=== PATIENT | male | born 1970 | race Caucasian/White ===

== ENCOUNTER 2017-02-22 18:57 | Emergency (ER) | payer SELFPAY ==
[~2017-02-22] VITALS: Ht 175.3 cm; Wt 109.8 kg
[2017-02-22 19:01] VITALS: TEMP 36.6; Ht 175.3 cm; Wt 109.8 kg
[2017-02-22] MEDS ORDERED: SODIUM CHLORIDE 0.9% 1000ML 1,000 ML IV STA (20:07)
[2017-02-22 20:18] LABS: BASO % 0.3 %; BASO ABS # 0.03 K/uL (0-0.2); COMPLETE YES; EOS % 2.1 %; HEMATOCRIT 41.3 % (42-52); IG% 0.2 %; LYMPH % 22.8 %; LYMPH ABS # 2.45 K/uL (1.2-3.4); MEAN CELL VOLUME 85.3 fL (80-100); MEAN CORPUSCULAR HEMOGLOBIN 30.6 pg (25-34); MEAN CORPUSCULAR HGB CONC 35.8 g/dl (32-36); MEAN PLATELET VOLUME 9.4 fL (7.4-10.4); MONO % 11.5 %; NEUT % 63.1 %; PLATELET COUNT 228 K/uL (130-400); RED BLOOD COUNT 4.84 M/uL (4.7-6.1); WHITE BLOOD COUNT 10.74 K/uL (4.8-10.8)
[2017-02-22 20:29] LABS: URINE APPEARANCE CLEAR (CLEAR); URINE BILIRUBIN NEG (NEG); URINE COLOR YELLOW; URINE NITRITE NEG (NEG); URINE SPECIFIC GRAVITY 1.029 (1.000-1.030); UROBILINOGEN NEG (NEG); ZZUR CULT IF INDIC CLEAN CATCH NO
[2017-02-22 20:37] LABS: MANUAL MICROSCOPIC REQUIRED? NO; REVIEW REQ? NO
[2017-02-22 20:56] LABS: POTASSIUM 3.9 mmol/L (3.5-5.1); SODIUM 144 mmol/L (136-145)
[2017-02-22 21:01] LABS: AST/SGOT 25 U/L (15-37)
[2017-02-22 21:17] LABS: ALKALINE PHOSPHATASE 74 U/L (45-117); ALT/SGPT 44 U/L (12-78); BLOOD UREA NITROGEN 12 mg/dl (7-18); BUN/CREATININE RATIO 12.1 (10-20); CALCIUM 8.6 mg/dl (8.5-10.1); CARBON DIOXIDE 29 mmol/L (21-32); CHLORIDE 109 mmol/L (98-107); CREATININE 0.96 mg/dl (0.60-1.40); GLUCOSE 106 mg/dl (70-99)
[2017-02-22] MEDS ORDERED: PRAV20TA PO (21:19)
[2017-02-22] MEDS ORDERED: ZNTT/150 PO (21:19)
[2017-02-22] MEDS ORDERED: PROP20TA67 PO (21:19)
[2017-02-22] MEDS ORDERED: OMEG10007 PO (21:19)
[2017-02-22 21:56] VITALS: BP 129/84; PULSE 54; O2SAT 98
--- NOTE | 2017-02-22 22:30 | EMERGENCY ROOM VISIT NOTE ---
History Report prepared by Brisa: Ebenezer Crews Under the Supervision of: Dr. Tavares Avery D.O. First contact with patient: 19:05 Chief Complaint: RECTAL BLEEDING Stated Complaint: BLEEDING FROM RECTUM History of Present Illness The patient is a 46 year old male who presents to the Emergency Room with complaints of intermittent rectal bleeding beginning 4 hours ago. He states that he noticed "bright red" blood in the toilet the first time he noticed the bleeding. He notes that he was straining and had hard stools at the time. The patient states that he noticed bleeding with defecation a second time, but it was primarily on the toilet paper this second/third/fourth time. He notes that he may have had some dark stool yesterday as well. He is not on any blood thinners. Pt denies headache, change in vision, fevers, chest pain, shortness of breath, nausea, vomiting, diarrhea, or pain with urination. He notes that he has a history of hemorrhoids. He has a mild burning on his rectum but otherwise no other complaints. He does not feel dizzy or lightheaded. Source of History: patient Onset: 4 hours ago Position: other (rectum) Quality: other (bleeding "bright red" blood) Timing: intermittent Associated Symptoms: + melena, No SOB, No chest pain, No chills, No diarrhea , No fevers, No nausea, No urinary symptoms, No vomiting Review of Systems See HPI for pertinent positives & negatives. A total of 10 systems reviewed and were otherwise negative. Past Medical & Surgical Medical Problems: (1) No Known Active Medical Problems Surgical Problems: (1) Hx of cholecystectomy Family History No pertinent family history stated. Social History Smoking Status: Never Smoker Marital Status: Housing Status: lives with family Current/Historical Medications Scheduled Propranolol (Inderal), 20 MG PO BID Ranitidine (Zantac), 150 MG PO BID Miscellaneous Medications Fish Oil (Vernal-3), 1 CAP PO Pravastatin (Pravachol ), 20 MG PO Allergies Uncoded Allergies: NKDA (Allergy, Unknown, 09/26/04) Physical Exam Vital Signs Date Time Temp Pulse Resp B/P Pulse Ox O2 Delivery O2 Flow Rate FiO2 02/22/17 21:56 54 16 129/84 98 Room Air 02/22/17 21:00 59 18 138/87 97 Room Air 02/22/17 19:01 36.6 106 18 164/94 96 Room Air Physical Exam GENERAL: Sitting up in bed, alert, well appearing, well nourished, no distress, non-toxic EYE EXAM: normal conjunctiva OROPHARYNX: no exudate, no erythema, lips, buccal mucosa, and tongue normal and mucous membranes are moist NECK: supple, no nuchal rigidity, no adenopathy, non-tender LUNGS: Clear to auscultation. Normal chest wall mechanics HEART: no murmurs, S1 normal and S2 normal ABDOMEN: abdomen soft, non-tender, normo-active bowel sounds, no masses, no rebound or guarding. BACK: Back is symmetrical on inspection and there is no deformity, no midline tenderness, no CVA tenderness. RECTAL: Heme positive. External hemorrhoid, nontender without active bleeding. SKIN: no rashes and no bruising UPPER EXTREMITIES: upper extremities are grossly normal. LOWER EXTREMITIES: No pitting edema. NEURO EXAM: Normal sensorium, cranial nerves II-XII grossly intact, normal speech, no gross weakness of arms, no gross weakness of legs. Medical Decision & Procedures Laboratory Results 02/22/17 20:05 Red Blood Count 4.84, Mean Corpuscular Volume 85.3, Mean Corpuscular Hemoglobin 30.6, Mean Corpuscular Hemoglobin Concent 35.8, Mean Platelet Volume 9.4, Neutrophils (%) (Auto) 63.1, Lymphocytes (%) (Auto) 22.8, Monocytes (%) (Auto) 11.5, Eosinophils (%) (Auto) 2.1, Basophils (%) (Auto) 0.3, Neutrophils # (Auto ) 6.77, Lymphocytes # (Auto) 2.45, Monocytes # (Auto) 1.24, Eosinophils # (Auto ) 0.23, Basophils # (Auto) 0.03 02/22/17 20:05 Test 02/22/17 19:45 02/22/17 20:05 Urine Color YELLOW Urine Appearance CLEAR (CLEAR) Urine pH 6.0 (4.5-7.5) Urine Specific [place] 1.029 (1.000-1.030) Urine Protein NEG (NEG) Urine Glucose (UA) NEG (NEG) Urine Ketones NEG (NEG) Urine Occult Blood NEG (NEG) Urine Nitrite NEG (NEG) Urine Bilirubin NEG (NEG) Urine Urobilinogen NEG (NEG) Urine Leukocyte Esterase NEG (NEG) Urine WBC (Auto) 0 /hpf (0-5) Urine RBC (Auto) 0-4 /hpf (0-4) Urine Hyaline Casts (Auto) 1-5 /lpf (0-5) Urine Epithelial Cells (Auto) 5-10 /lpf (0-5) Urine Bacteria (Auto) NEG (NEG) White Blood Count 10.74 K/uL (4.8-10.8) Red Blood Count 4.84 M/uL (4.7-6.1) Hemoglobin 14.8 g/dL (14.0-18.0) Hematocrit 41.3 % (42-52) Mean Corpuscular Volume 85.3 fL (80-100) Mean Corpuscular Hemoglobin 30.6 pg (25-34) Mean Corpuscular Hemoglobin Concent 35.8 g/dl (32-36) Platelet Count 228 K/uL (130-400) Mean Platelet Volume 9.4 fL (7.4-10.4) Neutrophils (%) (Auto) 63.1 % Lymphocytes (%) (Auto) 22.8 % Monocytes (%) (Auto) 11.5 % Eosinophils (%) (Auto) 2.1 % Basophils (%) (Auto) 0.3 % Neutrophils # (Auto) 6.77 K/uL (1.4-6.5) Lymphocytes # (Auto) 2.45 K/uL (1.2-3.4) Monocytes # (Auto) 1.24 K/uL (0.11-0.59) Eosinophils # (Auto) 0.23 K/uL (0-0.5) Basophils # (Auto) 0.03 K/uL (0-0.2) RDW Standard Deviation 41.3 fL (36.4-46.3) RDW Coefficient of Variation 13.2 % (11.5-14.5) Immature Granulocyte % (Auto) 0.2 % Immature Granulocyte # (Auto) 0.02 K/uL (0.00-0.02) Anion Gap 6.0 mmol/L (3-11) Est Creatinine Clear Calc Drug Dose 114.9 ml/min Estimated GFR () 107.9 Estimated GFR (Non- 93.1 BUN/Creatinine Ratio 12.1 (10-20) Calcium Level 8.6 mg/dl (8.5-10.1) Total Bilirubin 0.5 mg/dl (0.2-1) Direct Bilirubin < 0.1 mg/dl (0-0.2) Aspartate Amino Transf (AST/SGOT) 25 U/L (15-37) Alanine Aminotransferase (ALT/SGPT) 44 U/L (12-78) Alkaline Phosphatase 74 U/L (45-117) Total Protein 7.0 gm/dl (6.4-8.2) Albumin 3.8 gm/dl (3.4-5.0) Lipase 153 U/L (73-393) Laboratory results per my review. Medications Administered Medications (Trade) Dose Ordered Sig/Elton Route Start Time Stop Time Status Last Admin Dose Admin Sodium Chloride (Nss 1000ml) 1,000 ml @ 999 mls/hr Q1H1M STAT IV 02/22/17 20:07 02/22/17 21:07 DC 02/22/17 20:07 999 MLS/HR ED Course ED COURSE: Vital signs were reviewed and showed tachycardia The patients medical record was reviewed The above diagnostic studies were performed and reviewed. ED treatments and interventions as stated above. 1911: The patient was evaluated in room B7. A complete history and physical examination was performed. 2006: Ordered Sodium Chloride 1000 ml @ 999 mls/hr IV. 2119: I reassessed the patient. He states that he has had four bowel movements since he arrived. He states that the first bowel movement had blood around the stool in the toilet, but the following three only had blood with wiping. 2144: Upon reevaluation, the patient is resting comfortably. I discussed my findings with the patient and he understands and agrees with the treatment plan. Based on the patients age, coexisting illnesses, exam and lab findings the decision to treat as an outpatient was made. The patient remained stable while under my care. The patient appeared well at the time of discharge. Medical Decision Differential diagnoses includes but is not limited to gastritis, peptic ulcer disease, GERD, gallbladder disease, pancreatitis, small bowel obstruction, acute coronary syndrome, pericarditis, ischemic bowel, irritable bowel disease, irritable bowel syndrome, appendicitis, diverticulitis, malignancy, hernia, urinary tract infection, torsion, perforation, trauma, infectious. Patient is a 46-year-old male who presents the ER for bright red blood per rectum. His initial bowel movement had bright red blood in the bowl. He did have hard bowel movement with this. Following this he has only had blood with wiping. Labs show no significant leukocytosis, BMP, LFTs, bilirubin or lipase. UA was unremarkable. Rectal shows external hemorrhoid and was heme positive without stool. I discussed this case with GI and they concur/agree that this is likely hemorrhoidal in nature. Patient was discharged to follow-up with GI tomorrow. I did give him stool softeners and stressed the importance of following up and returning for any worsening symptoms. Again his abdominal exam was completely benign and his vitals showed a bradycardia with normal systolic pressures and a stable hemoglobin. Discussed with Pt concerning signs and symptoms to watch out for. Pt was instructed to follow up with their PCP and discussed with the patient their option to return to the ED at anytime for persistent or worsening symptoms. The appropriate anticipatory guidance and out- patient management, including indications for return to the emergency department , were explained at length to the patient and understood. Consults Time Called: 2131 Consulting Physician: Dr. Paiz -GI Returned Call: 2136 I reviewed the patient's case with Dr. Paiz. He recommends that the patient follow up as an outpatient. Impression Primary Impression: GI bleed Scribe Attestation The scribe's documentation has been prepared under my direction and personally reviewed by me in its entirety. I confirm that the note above accurately reflects all work, treatment, procedures, and medical decision making performed by me. Departure Information Dispostion Home / Self-Care Referrals Sobeida Sharma PA-C (PCP) Forms HOME CARE DOCUMENTATION FORM, IMPORTANT VISIT INFORMATION, WORK / SCHOOL INSTRUCTIONS Patient Instructions GI Bleeding - [facility], [facility] Additional Instructions Please follow up with your primary care doctor with in the next 24 hours. Any worsening of your symptoms, please return to the ED immediately. Dizziness, lightheadedness, abdominal pain, persistent bleeding, passing out, chest pain, shortness of breath or any other concerning signs or symptoms from your standpoint. Please call gastroenterology tomorrow morning to set up appointment to be seen. Problem Qualifiers Primary Impression: GI bleed GI bleed type/associated pathology: unspecified gastrointestinal hemorrhage type Qualified Codes: K92.2 - Gastrointestinal hemorrhage, unspecified
== END 2017-02-22 22:00 | disposition home or self-care (01) ==
LOC: C.EDB 19:00
DX: K92.2 Gastrointestinal hemorrhage, unspecified (principal); Z79.899 Other long term (current) drug therapy; Z90.49 Acquired absence of other specified parts of digestive tract

== ENCOUNTER 2018-01-24 18:47 | Emergency (ER) | payer SELFPAY ==
[~2018-01-24] VITALS: Ht 175.3 cm; Wt 109.1 kg
[~2018-01-24 18:47] MED LIST: OMEG10007 PO; PRAV20TA PO; PROP20TA67 PO
[2018-01-24 18:52] VITALS: TEMP 36.6; Ht 175.3 cm; Wt 109.1 kg
[2018-01-24] MEDS ORDERED: ALUMINUM/MAGNESIUM SUSP 30 ML UDC PO STA (19:02)
[2018-01-24] MEDS ORDERED: SODIUM CHLORIDE 0.9% 1000ML 1,000 ML IV STA (19:02)
[2018-01-24] MEDS ORDERED: ONDANSETRON INJ 2 MG/ML 2 ML VIAL IV STA (19:02)
--- NOTE | 2018-01-24 19:07 | EMERGENCY ROOM VISIT NOTE ---
History Report prepared by Brisa: Henna Mi Under the Supervision of: Zunilda GouldO. First contact with patient: 18:57 Chief Complaint: CHEST PAIN Stated Complaint: CHEST PAINS History of Present Illness The patient is a 47 year old male who presents to the Emergency Room with complaints of persistent chest pain that began 3 days ago. He reports that after work 3 days ago, he began dry heaving for about 2 hours. After this episode, his chest and stomach began hurting. Since then, he has also been experiencing lightheadedness, shortness of breath, headaches, indigestion, loss of appetite, tingling/numbness of his left arm, centralized back pain, and trouble staying warm. He notes that his symptoms worsen when when he coughs. The patient denies any fevers, swelling in his legs, vomiting, or diarrhea. He reports that he took Tylenol and Aleve, which did not help relieve his symptoms. The patient denies having a stress test in the past and denies a history of a heart attack. Source of History: patient Onset: 3 days ago Position: chest Quality: other (chest pain) Timing: other (persistent) Modifying Factors (Worsening): other (coughing) Associated Symptoms: + headache, + SOB, + abdominal pain, + back pain ( centralized), No fevers, No vomiting, No diarrhea Note: Associated symptoms includes: lightheadedness, indigestion, loss of appetite, tingling/numbness of his left arm, and trouble staying warm. The patient denies: swelling in his legs. Review of Systems See HPI for pertinent positives & negatives. A total of 10 systems reviewed and were otherwise negative. Past Medical & Surgical Medical Problems: (1) No Known Active Medical Problems Surgical Problems: (1) Hx of cholecystectomy Family History Hypertension Social History Smoking Status: Never Smoker Smokeless Tobacco Use: Yes Alcohol Use: none Drug Use: none Marital Status: Housing Status: lives with family Occupation Status: employed Current/Historical Medications Scheduled Omeprazole (Prilosec), 40 MG PO DAILY Ondasetron Odt (Zofran Odt), 4 MG SL Q6H Pravastatin Sodium (Pravastatin Sodium), 10 MG PO DAILY Propranolol Hcl (Propranolol Hcl), 40 MG PO BID Ranitidine (Zantac), 150 MG PO BID Allergies Coded Allergies: No Known Allergies (Unverified , 01/24/18) Physical Exam Vital Signs Date Time Temp Pulse Resp B/P (MAP) Pulse Ox O2 Delivery O2 Flow Rate FiO2 01/24/18 22:31 56 18 131/68 97 01/24/18 21:12 54 127/73 96 01/24/18 20:41 64 01/24/18 18:52 36.6 60 18 158/65 96 Room Air Physical Exam GENERAL: Patient is awake, alert, and in no acute distress. Patient is resting comfortably and showing no signs of anxiety EYES: The conjunctivae are clear. The pupils are round and reactive. EARS, NOSE, MOUTH AND THROAT: The nose is without any evidence of any deformity. Mucous membranes are moist tongue is midline NECK: The neck is nontender and supple. RESPIRATORY: Normal respiratory effort is noted there is no evidence of wheezing rhonchi or rales CARDIOVASCULAR: Regular rate and rhythm noted there no murmurs rubs or gallops normal S1 normal S2 GASTROINTESTINAL: Abdomen is mildly distended, but soft. Epigastric tenderness to palpation, but no rebound or rigidity. MUSCULOSKELETAL/EXTREMITIES: There is no evidence of gross deformity full range of motion is noted in the hips and shoulders SKIN: There is no obvious evidence of any rash. There are no petechiae, pallor or cyanosis noted. NEUROLOGIC: Patient is awake alert and oriented x3 strength is symmetric patellar reflexes are 2+ bilaterally Medical Decision & Procedures ER Provider Diagnostic Interpretation: Radiology results as stated below per my review and radiologist interpretation: ABD/PELVIS NO IV OR ORAL CONT CT DOSE: 1254.23 mGy.cm HISTORY: Pain epigastric pain TECHNIQUE: Multiaxial CT images of the abdomen and pelvis were performed without contrast. A dose lowering technique was utilized adhering to the principles of ALARA. COMPARISON STUDY: None. FINDINGS: Lung bases are clear. The liver spleen and pancreas are grossly unremarkable and terms of overall morphology. Prior cholecystectomy. The adrenal glands are normal. Kidneys negative for calcification or hydronephrosis. The bowel pattern is nonobstructive. The appendix is normal. There are findings of mild chronic sigmoid diverticulosis. There is no evidence for acute diverticulitis. There is no free fluid within the abdomen or pelvic region. There are postoperative reconstructive changes to the posterior left acetabulum and left iliac wing. IMPRESSION: 1. Prior cholecystectomy and left pelvic reconstructive-type change. 2. Mild chronic sigmoid diverticulosis. 3. Study is otherwise negative. 4. Normal appendix. The above report was generated using voice recognition software. It may contain grammatical, syntax or spelling errors. Electronically signed by: Davon Easley M.D. 01/24/2018 7:57 PM Dictated Date/Time: 01/24/2018 7:53 PM CHEST ONE VIEW PORTABLE CLINICAL HISTORY: ABDOMINAL PAIN/GI pain COMPARISON STUDY: No previous studies for comparison. FINDINGS: The bones soft tissues and hemidiaphragms are normal. The cardiomediastinal silhouette is normal. The lungs are clear. The pulmonary vasculature is normal. IMPRESSION: Negative chest. The above report was generated using voice recognition software. It may contain grammatical, syntax or spelling errors. Electronically signed by: Davon Easley M.D. 01/24/2018 7:21 PM Dictated Date/Time: 01/24/2018 7:21 PM Laboratory Results 01/24/18 19:13 Red Blood Count 5.07, Mean Corpuscular Volume 84.4, Mean Corpuscular Hemoglobin 30.2, Mean Corpuscular Hemoglobin Concent 35.7, Mean Platelet Volume 9.3, Neutrophils (%) (Auto) 60.2, Lymphocytes (%) (Auto) 26.5, Monocytes (%) (Auto) 10.5, Eosinophils (%) (Auto) 2.1, Basophils (%) (Auto) 0.4, Neutrophils # (Auto ) 5.81, Lymphocytes # (Auto) 2.56, Monocytes # (Auto) 1.01, Eosinophils # (Auto ) 0.20, Basophils # (Auto) 0.04 01/24/18 19:13 Test 01/24/18 19:13 01/24/18 20:12 White Blood Count 9.65 K/uL (4.8-10.8) Red Blood Count 5.07 M/uL (4.7-6.1) Hemoglobin 15.3 g/dL (14.0-18.0) Hematocrit 42.8 % (42-52) Mean Corpuscular Volume 84.4 fL (80-100) Mean Corpuscular Hemoglobin 30.2 pg (25-34) Mean Corpuscular Hemoglobin Concent 35.7 g/dl (32-36) Platelet Count 215 K/uL (130-400) Mean Platelet Volume 9.3 fL (7.4-10.4) Neutrophils (%) (Auto) 60.2 % Lymphocytes (%) (Auto) 26.5 % Monocytes (%) (Auto) 10.5 % Eosinophils (%) (Auto) 2.1 % Basophils (%) (Auto) 0.4 % Neutrophils # (Auto) 5.81 K/uL (1.4-6.5) Lymphocytes # (Auto) 2.56 K/uL (1.2-3.4) Monocytes # (Auto) 1.01 K/uL (0.11-0.59) Eosinophils # (Auto) 0.20 K/uL (0-0.5) Basophils # (Auto) 0.04 K/uL (0-0.2) RDW Standard Deviation 40.1 fL (36.4-46.3) RDW Coefficient of Variation 13.3 % (11.5-14.5) Immature Granulocyte % (Auto) 0.3 % Immature Granulocyte # (Auto) 0.03 K/uL (0.00-0.02) Anion Gap 6.0 mmol/L (3-11) Est Creatinine Clear Calc Drug Dose 112.2 ml/min Estimated GFR () 105.8 Estimated GFR (Non- 91.3 BUN/Creatinine Ratio 11.8 (10-20) Calcium Level 8.3 mg/dl (8.5-10.1) Magnesium Level 2.1 mg/dl (1.8-2.4) Total Bilirubin 0.3 mg/dl (0.2-1) Direct Bilirubin < 0.1 mg/dl (0-0.2) Aspartate Amino Transf (AST/SGOT) 24 U/L (15-37) Alanine Aminotransferase (ALT/SGPT) 34 U/L (12-78) Alkaline Phosphatase 72 U/L (45-117) Troponin I < 0.015 ng/ml (0-0.045) Total Protein 6.9 gm/dl (6.4-8.2) Albumin 3.6 gm/dl (3.4-5.0) Lipase 198 U/L (73-393) Urine Color YELLOW Urine Appearance CLOUDY (CLEAR) Urine pH 6.0 (4.5-7.5) Urine Specific [place] 1.026 (1.000-1.030) Urine Protein NEG (NEG) Urine Glucose (UA) NEG (NEG) Urine Ketones TRACE (NEG) Urine Occult Blood NEG (NEG) Urine Nitrite NEG (NEG) Urine Bilirubin NEG (NEG) Urine Urobilinogen NEG (NEG) Urine Leukocyte Esterase NEG (NEG) Urine WBC (Auto) 1-5 /hpf (0-5) Urine RBC (Auto) 0-4 /hpf (0-4) Urine Hyaline Casts (Auto) 1-5 /lpf (0-5) Urine Epithelial Cells (Auto) 0-5 /lpf (0-5) Urine Bacteria (Auto) NEG (NEG) Laboratory results per my review. Medications Administered Medications (Trade) Dose Ordered Sig/Elton Route Start Time Stop Time Status Last Admin Dose Admin Ondansetron HCl (Zofran Inj) 4 mg NOW STAT IV 01/24/18 19:02 01/24/18 19:04 DC 01/24/18 19:17 4 MG Sodium Chloride 1,000 ml @ 999 mls/hr Q1H1M STAT IV 01/24/18 19:02 01/24/18 20:02 DC 01/24/18 19:19 999 MLS/HR Pantoprazole Sodium 40 mg/ Syringe 10 ml @ 5 mls/min NOW ONCE IV 01/24/18 19:15 01/24/18 19:16 DC 01/24/18 20:03 5 MLS/MIN Al Hydroxide/Mg Hydroxide (Maalox Susp) 30 ml NOW STAT PO 01/24/18 19:02 01/24/18 19:04 DC 01/24/18 19:17 30 ML ECG Per My Interpretation Indication: chest pain Rate (beats per minute): 53 Rhythm: sinus bradycardia Findings: no ectopy, other (no ST segments abnormalities) Comparison ECG Date: changes [facility] 08/04/2000 ED Course 185: The patient was evaluated in room B10. A complete history and physical examination were performed. 1901: Ordered Maalox Susp 30ml PO, Sodium Chloride 1000ml @ 999 mls/hr IV, and Zofran Inj 4mg IV. 1914: Ordered Pantoprazole Sodium 40mg/ Syringe 10ml @ 5mls/min IV. Medical Decision Prior records/ancillary studies reviewed. Triage Nursing notes reviewed. The patient's history was concerning for chest pain. Differential diagnosis: Etiologies such as cardiac ischemia, aortic dissection, pulmonary embolism, pneumonia, pneumothorax, musculoskeletal, infections, pericarditis, myocarditis , esophageal rupture, gastrointestinal, as well as others were entertained. The patient is a 47-year-old male who presented to the emergency department for an evaluation of chest pain and abdominal pain. The patient had episodes of dry heaves and then started noticing abdominal pain and chest pain. The pain was somewhat reproducible but not completely. For this reason he was concerned that there could be some other underlying problem and possibly a cardiac problem. The patient's abdominal exam was not consistent with an acute surgical abdomen. I discussed patient's laboratory and radiographic studies with him. I also discussed the limitations of the emergency department workup for chest pain with him. The patient has had ongoing symptoms for quite some time but yet has a negative troponin. I do feel that this does not represent a cardiac source for his chest pain at this time. For this reason he was encouraged to rest and avoid any strenuous activity. He was also encouraged to call his family doctor in the morning to schedule a follow-up appointment but return to the emergency department immediately if symptoms change worsen or the need arises. Medication Reconcilliation Current Medication List: was personally reviewed by me Blood Pressure Screening Patient's blood pressure: Normal blood pressure Blood pressure disposition: Did not require urgent referral Impression Primary Impression: Chest pain Additional Impression: Abdominal pain Scribe Attestation The scribe's documentation has been prepared under my direction and personally reviewed by me in its entirety. I confirm that the note above accurately reflects all work, treatment, procedures, and medical decision making performed by me. Departure Information Dispostion Home / Self-Care Prescriptions Omeprazole (PRILOSEC) 40 Mg Cap 40 MG PO DAILY, #30 CAP Prov: Damian Kiser, DO 01/24/18 Ondasetron Odt (ZOFRAN ODT) 4 Mg Tab 4 MG SL Q6H for Nausea, #15 TAB Prov: Damian Kiser, DO 01/24/18 Referrals No Doctor, Assigned (PCP) Forms Call Back Authorization, HOME CARE DOCUMENTATION FORM, IMPORTANT VISIT INFORMATION Patient Instructions My [facility] Additional Instructions Call your family doctor in the morning to schedule a follow-up appointment. Continue all other medications as prescribed. Drink plenty clear liquids. Rest and avoid any strenuous activity. Return to the emergency department immediately if symptoms change worsen or the need arises. Problem Qualifiers Primary Impression: Chest pain Chest pain type: unspecified Qualified Codes: R07.9 - Chest pain, unspecified Additional Impression: Abdominal pain Abdominal location: unspecified location Qualified Codes: R10.9 - Unspecified abdominal pain
[2018-01-24] MEDS ORDERED: PANTOprazole INJ 40 MG in SYRINGE 0 ML IV ONE (19:15)
[2018-01-24 19:21] LABS: BASO % 0.4 %; BASO ABS # 0.04 K/uL (0-0.2); EOS % 2.1 %; HEMATOCRIT 42.8 % (42-52); HEMOGLOBIN 15.3 g/dL (14.0-18.0); IG# 0.03 K/uL (0.00-0.02); LYMPH % 26.5 %; LYMPH ABS # 2.56 K/uL (1.2-3.4); MEAN CELL VOLUME 84.4 fL (80-100); MEAN CORPUSCULAR HEMOGLOBIN 30.2 pg (25-34); MEAN CORPUSCULAR HGB CONC 35.7 g/dl (32-36); MEAN PLATELET VOLUME 9.3 fL (7.4-10.4); MONO % 10.5 %; MONO ABS # 1.01 K/uL (0.11-0.59); NEUT % 60.2 %; NEUT ABS # 5.81 K/uL (1.4-6.5); PLATELET COUNT 215 K/uL (130-400); RED CELL DISTRIBUTION WIDTH CV 13.3 % (11.5-14.5); RED CELL DISTRIBUTION WIDTH SD 40.1 fL (36.4-46.3); WHITE BLOOD COUNT 9.65 K/uL (4.8-10.8)
--- NOTE | 2018-01-24 19:22 | DIAGNOSTIC IMAGING REPORT ---
CHEST ONE VIEW PORTABLE CLINICAL HISTORY: ABDOMINAL PAIN/GI pain COMPARISON STUDY: No previous studies for comparison. FINDINGS: The bones soft tissues and hemidiaphragms are normal. The cardiomediastinal silhouette is normal. The lungs are clear. The pulmonary vasculature is normal. IMPRESSION: Negative chest. The above report was generated using voice recognition software. It may contain grammatical, syntax or spelling errors. Electronically signed by: Davon Easley M.D. 01/24/2018 7:21 PM Dictated Date/Time: 01/24/2018 7:21 PM
[2018-01-24] MEDS ORDERED: PROP40TA5 PO (19:41)
[2018-01-24] MEDS ORDERED: PRAV10TA39 PO (19:41)
--- NOTE | 2018-01-24 19:58 | DIAGNOSTIC IMAGING REPORT ---
ABD/PELVIS NO IV OR ORAL CONT CT DOSE: 1254.23 mGy.cm HISTORY: Pain epigastric pain TECHNIQUE: Multiaxial CT images of the abdomen and pelvis were performed without contrast. A dose lowering technique was utilized adhering to the principles of ALARA. COMPARISON STUDY: None. FINDINGS: Lung bases are clear. The liver spleen and pancreas are grossly unremarkable and terms of overall morphology. Prior cholecystectomy. The adrenal glands are normal. Kidneys negative for calcification or hydronephrosis. The bowel pattern is nonobstructive. The appendix is normal. There are findings of mild chronic sigmoid diverticulosis. There is no evidence for acute diverticulitis. There is no free fluid within the abdomen or pelvic region. There are postoperative reconstructive changes to the posterior left acetabulum and left iliac wing. IMPRESSION: 1. Prior cholecystectomy and left pelvic reconstructive-type change. 2. Mild chronic sigmoid diverticulosis. 3. Study is otherwise negative. 4. Normal appendix. The above report was generated using voice recognition software. It may contain grammatical, syntax or spelling errors. Electronically signed by: Davon Easley M.D. 01/24/2018 7:57 PM Dictated Date/Time: 01/24/2018 7:53 PM
[2018-01-24 20:03] LABS: CREATININE 0.97 mg/dl (0.60-1.40)
[2018-01-24 20:50] LABS: ALBUMIN 3.6 gm/dl (3.4-5.0); ALKALINE PHOSPHATASE 72 U/L (45-117); ALT/SGPT 34 U/L (12-78); AST/SGOT 24 U/L (15-37); BLOOD UREA NITROGEN 12 mg/dl (7-18); CALCIUM 8.3 mg/dl (8.5-10.1); CARBON DIOXIDE 28 mmol/L (21-32); GLUCOSE 83 mg/dl (70-99); LIPASE 198 U/L (73-393); POTASSIUM 3.8 mmol/L (3.5-5.1); SODIUM 143 mmol/L (136-145); TOTAL PROTEIN 6.9 gm/dl (6.4-8.2)
[2018-01-24] MEDS ORDERED: RANI150T85 PO (21:19)
[2018-01-24] MEDS ORDERED: ONDANSETRON HOME PACK 4MG OD TAB PO ONE (22:15)
[2018-01-24] MEDS ORDERED: OMEP40CA41 PO (22:15)
[2018-01-24] MEDS ORDERED: ONDA4TAB10 SL (22:15)
[2018-01-24 22:31] VITALS: BP 131/68; PULSE 56; O2SAT 97
== END 2018-01-24 22:31 | disposition home or self-care (01) ==
LOC: C.EDB 18:48
DX: R07.9 Chest pain, unspecified (principal); R10.13 Epigastric pain; R11.0 Nausea; F17.290 Nicotine dependence, other tobacco product, uncomplicated

== ENCOUNTER 2018-01-27 11:41 | Observation (INO) | payer SELFPAY ==
[~2018-01-27] VITALS: Ht 175.3 cm; Wt 106.5 kg
[~2018-01-27 11:41] MED LIST changes: -OMEG10007 PO; +OMEP40CA41 PO; +ONDA4TAB10 SL; +PRAV10TA39 PO; -PRAV20TA PO; -PROP20TA67 PO; +PROP40TA5 PO; +RANI150T85 PO
[2018-01-27] MEDS ORDERED: ONDANSETRON INJ 2 MG/ML 2 ML VIAL IV STA (12:08)
[2018-01-27] MEDS ORDERED: ACETAMINOPHEN 500 MG TAB PO STA (12:08)
[2018-01-27] MEDS ORDERED: ALUMINUM/MAGNESIUM SUSP 30 ML UDC PO STA (12:08)
--- NOTE | 2018-01-27 12:23 | EMERGENCY ROOM VISIT NOTE ---
History Report prepared by Brisa: Papi Singleton Under the Supervision of: Dr. Willis Barroso M.D. First contact with patient: 12:01 Chief Complaint: CHEST PAIN Stated Complaint: CHEST PAIN Nursing Triage Summary: pt reports he was seen in ed on thursday for same symptoms. pt reports intermittent mid chest pain. pt reports he feels nauseated. pt reports last night "my left arm was numb." pt reports intermittent chest pain continues. History of Present Illness The patient is a 47 year old white male with a past medical history of HLD, hip surgery, and a hiatal hernia who presents to the ED with a cc of coming and going dull chest pain beginning last night. Positive left arm heaviness and numbness, nausea, and intermittent SOB. Negative recent strain, recent injury, vomiting, cough, fever, chills, history of lung clots, recent long car rides or surgery. The patient notes that the pain comes and goes very quickly, nothing makes it better or worse, and the pain is in the middle and does not move anywhere. The patient was seen on the with similar symptoms. He had a negative work up with a negative CT abdomen/pelvis and a chest x-ray Source of History: patient Onset: last night Position: chest Quality: dull Timing: other (coming and going) Modifying Factors (Worsening): other (nothing) Modifying Factors (Relieving): other (nothing) Associated Symptoms: + SOB, + nausea, No fevers, No chills, No cough, No vomiting Note: Associated symptoms: Left arm heaviness and numbness Review of Systems See HPI for pertinent positives and negatives. A total of ten systems were reviewed and were otherwise negative. Past Medical & Surgical Medical Problems: (1) HLD (hyperlipidemia) Surgical Problems: (1) Hx of cholecystectomy Family History Hypertension Social History Smoking Status: Never Smoker Alcohol Use: none Drug Use: none Marital Status: Housing Status: lives with family Occupation Status: employed Current/Historical Medications Scheduled Omeprazole (Prilosec), 40 MG PO DAILY Ondasetron Odt (Zofran Odt), 4 MG SL Q6H Pravastatin Sodium (Pravastatin Sodium), 10 MG PO DAILY Propranolol Hcl (Propranolol Hcl), 40 MG PO BID Allergies Coded Allergies: No Known Allergies (Unverified , 01/27/18) Physical Exam Vital Signs Date Time Temp Pulse Resp B/P (MAP) Pulse Ox O2 Delivery O2 Flow Rate FiO2 01/27/18 14:12 94 Room Air 01/27/18 13:51 54 18 122/64 94 Room Air 01/27/18 13:09 54 18 137/79 95 Room Air 01/27/18 12:30 54 01/27/18 12:02 55 18 137/79 95 Room Air 01/27/18 11:55 95 Room Air 01/27/18 11:43 36.4 58 20 154/89 95 Room Air Physical Exam GENERAL: Awake, alert, well-appearing, NAD HENT: Normocephalic, atraumatic. EYES: Normal conjunctiva. Sclera non-icteric. PERRL. No anisocoria. NECK: Supple. No nuchal rigidity. FROM. RESPIRATORY: CTAB, no rhonchi, wheezing, crackles CARDIAC: RRR, no MRG ABDOMEN: Soft, NTND, BS+ MSK: No reproducible chest wall TTP, no LE edema. No calf pain. Negative Curt' s sign NEURO: GCS 15, CN 2-12 intact, moves all 4s on command SKIN: No rash or jaundice noted. Medical Decision & Procedures ER Provider Diagnostic Interpretation: Radiology results as stated below per my review and radiologist interpretation: SINGLE VIEW CHEST CLINICAL HISTORY: Atypical chest pain. FINDINGS: An AP, portable, upright chest radiograph is compared to study dated 01/24/2018. The examination is degraded by portable technique, large body habitus, and patient rotation. The cardiomediastinal silhouette is unremarkable. The lungs and pleural spaces are clear. No pneumothorax is seen. The bony thorax is grossly intact. IMPRESSION: No active disease in the chest. Electronically signed by: Praneeth Dave M.D. 01/27/2018 12:42 PM Dictated Date/Time: 01/27/2018 12:42 PM Laboratory Results 01/27/18 12:00 Red Blood Count 5.20, Mean Corpuscular Volume 84.4, Mean Corpuscular Hemoglobin 30.0, Mean Corpuscular Hemoglobin Concent 35.5, Mean Platelet Volume 9.6, Neutrophils (%) (Auto) 75.4, Lymphocytes (%) (Auto) 17.6, Monocytes (%) (Auto) 5.7, Eosinophils (%) (Auto) 0.7, Basophils (%) (Auto) 0.2, Neutrophils # (Auto) 8.42, Lymphocytes # (Auto) 1.96, Monocytes # (Auto) 0.64, Eosinophils # (Auto) 0.08, Basophils # (Auto) 0.02 01/27/18 12:00 Test 01/27/18 12:00 01/27/18 14:25 White Blood Count 11.16 K/uL (4.8-10.8) Red Blood Count 5.20 M/uL (4.7-6.1) Hemoglobin 15.6 g/dL (14.0-18.0) Hematocrit 43.9 % (42-52) Mean Corpuscular Volume 84.4 fL (80-100) Mean Corpuscular Hemoglobin 30.0 pg (25-34) Mean Corpuscular Hemoglobin Concent 35.5 g/dl (32-36) Platelet Count 248 K/uL (130-400) Mean Platelet Volume 9.6 fL (7.4-10.4) Neutrophils (%) (Auto) 75.4 % Lymphocytes (%) (Auto) 17.6 % Monocytes (%) (Auto) 5.7 % Eosinophils (%) (Auto) 0.7 % Basophils (%) (Auto) 0.2 % Neutrophils # (Auto) 8.42 K/uL (1.4-6.5) Lymphocytes # (Auto) 1.96 K/uL (1.2-3.4) Monocytes # (Auto) 0.64 K/uL (0.11-0.59) Eosinophils # (Auto) 0.08 K/uL (0-0.5) Basophils # (Auto) 0.02 K/uL (0-0.2) RDW Standard Deviation 40.9 fL (36.4-46.3) RDW Coefficient of Variation 13.5 % (11.5-14.5) Immature Granulocyte % (Auto) 0.4 % Immature Granulocyte # (Auto) 0.04 K/uL (0.00-0.02) Prothrombin Time 10.1 SECONDS (9.0-12.0) Prothromb Time International Ratio 1.0 (0.9-1.1) Activated Partial Thromboplast Time 26.2 SECONDS (21.0-31.0) Partial Thromboplastin Ratio 1.0 D-Dimer 370 ug/L FEU (0-500) Anion Gap 7.0 mmol/L (3-11) Est Creatinine Clear Calc Drug Dose 93.1 ml/min Estimated GFR () 85.2 Estimated GFR (Non- 73.5 BUN/Creatinine Ratio 9.5 (10-20) Calcium Level 8.8 mg/dl (8.5-10.1) Total Bilirubin 0.6 mg/dl (0.2-1) Direct Bilirubin 0.1 mg/dl (0-0.2) Aspartate Amino Transf (AST/SGOT) 25 U/L (15-37) Alanine Aminotransferase (ALT/SGPT) 38 U/L (12-78) Alkaline Phosphatase 68 U/L (45-117) Troponin I < 0.015 ng/ml (0-0.045) Pro-B-Type Natriuretic Peptide 164 pg/ml (0-450) Total Protein 7.0 gm/dl (6.4-8.2) Albumin 3.6 gm/dl (3.4-5.0) Lipase 122 U/L (73-393) Laboratory results reviewed by me Medications Administered Medications (Trade) Dose Ordered Sig/Elton Route Start Time Stop Time Status Last Admin Dose Admin Ondansetron HCl (Zofran Inj) 4 mg NOW STAT IV 01/27/18 12:08 01/27/18 12:09 DC 01/27/18 12:18 4 MG Al Hydroxide/Mg Hydroxide (Maalox Susp) 30 ml NOW STAT PO 01/27/18 12:08 01/27/18 12:09 DC 01/27/18 12:18 30 ML Acetaminophen (Tylenol Tab) 1,000 mg NOW STAT PO 01/27/18 12:08 01/27/18 12:09 DC 01/27/18 12:19 1,000 MG Aspirin (Aspirin Chew) 324 mg NOW STAT PO 01/27/18 13:05 01/27/18 13:07 DC 01/27/18 13:12 324 MG ECG Per My Interpretation Indication: chest pain Rate (beats per minute): 56 Rhythm: sinus bradycardia Findings: T-wave inversion (Lateral), other (Normal intervals, normal axis) Comparison ECG Date: 01/24/18 Change: TWI are new ED Course 1201: The patient was evaluated in room A3. A complete history and physical exam was performed. 1306: I reevaluated the patient, and he was not having any active chest pain, and he was getting aspirin. I discussed the treatment plan with him, and he was agreeable. He will be evaluated by further management by the hospitalist.. 1332: Discussed the patient's case with Dr. Kike SONI Hospitalist. The patient will be evaluated for further treatment and disposition. Medical Decision The patient is a 47 year old white male with a past medical history of HLD, hip surgery, and a hiatal hernia who presents to the ED with a cc of coming and going dull chest pain beginning last night. Nursing notes reviewed. Ancillary studies and prior records reviewed. Differential diagnosis: Etiologies such as cardiac ischemia, aortic dissection, pulmonary embolism, pneumonia, pneumothorax, musculoskeletal, infections, pericarditis, myocarditis , esophageal rupture, gastrointestinal, as well as others were entertained. Patient was seen and evaluated the bedside. Patient has complained of some chest discomfort. Patient states it is intermittent in nature central nonradiating. Patient has had some nausea without any vomiting. Patient did note some left upper extremity arm discomfort and numbness. Patient did have blood work completed along with EKG, troponin, chest x-ray. Patient's chest x-ray is clear. Patient blood work is unremarkable with a negative troponin. Patient's EKG does show TW I in the lateral leads. Given the acute changes in his EKG chest in 3 days the patient was given nitro and aspirin. I discussed the case with the on-call hospitalist who agreed to further evaluate and treat the patient. Medication Reconcilliation Current Medication List: was personally reviewed by me Blood Pressure Screening Patient's blood pressure: Elevated blood pressure Monitored by the hospitalist Consults Time Called: 1318 Consulting Physician: Dr. Kike SONI Hospitalist Returned Call: [phone] Discussed the patient's case with Dr. Kike SONI Hospitalist. The patient will be evaluated for further treatment and disposition. Impression Primary Impression: Chest pain Additional Impression: Abnormal EKG Scribe Attestation The scribe's documentation has been prepared under my direction and personally reviewed by me in its entirety. I confirm that the note above accurately reflects all work, treatment, procedures, and medical decision making performed by me. Departure Information Dispostion Being Evaluated By Hospitalist Referrals Sobeida Sharma PA-C (PCP) Patient Instructions [facility] Problem Qualifiers Primary Impression: Chest pain Chest pain type: unspecified Qualified Codes: R07.9 - Chest pain, unspecified
[2018-01-27 12:31] LABS: BASO % 0.2 %; BASO ABS # 0.02 K/uL (0-0.2); EOS % 0.7 %; EOS ABS # 0.08 K/uL (0-0.5); HEMATOCRIT 43.9 % (42-52); HEMOGLOBIN 15.6 g/dL (14.0-18.0); IG# 0.04 K/uL (0.00-0.02); LYMPH % 17.6 %; LYMPH ABS # 1.96 K/uL (1.2-3.4); MEAN CELL VOLUME 84.4 fL (80-100); MEAN CORPUSCULAR HGB CONC 35.5 g/dl (32-36); MEAN PLATELET VOLUME 9.6 fL (7.4-10.4); MONO % 5.7 %; MONO ABS # 0.64 K/uL (0.11-0.59); NEUT % 75.4 %; NEUT ABS # 8.42 K/uL (1.4-6.5); PLATELET COUNT 248 K/uL (130-400); RED CELL DISTRIBUTION WIDTH CV 13.5 % (11.5-14.5); RED CELL DISTRIBUTION WIDTH SD 40.9 fL (36.4-46.3); WHITE BLOOD COUNT 11.16 K/uL (4.8-10.8)
[2018-01-27 12:36] LABS: PTT PATIENT 26.2 SECONDS (21.0-31.0)
--- NOTE | 2018-01-27 12:43 | DIAGNOSTIC IMAGING REPORT ---
SINGLE VIEW CHEST CLINICAL HISTORY: Atypical chest pain. FINDINGS: An AP, portable, upright chest radiograph is compared to study dated 01/24/2018. The examination is degraded by portable technique, large body habitus, and patient rotation. The cardiomediastinal silhouette is unremarkable. The lungs and pleural spaces are clear. No pneumothorax is seen. The bony thorax is grossly intact. IMPRESSION: No active disease in the chest. Electronically signed by: Praneeth Dave M.D. 01/27/2018 12:42 PM Dictated Date/Time: 01/27/2018 12:42 PM
[2018-01-27 12:51] LABS: ALBUMIN 3.6 gm/dl (3.4-5.0); ALT/SGPT 38 U/L (12-78); AST/SGOT 25 U/L (15-37); BLOOD UREA NITROGEN 11 mg/dl (7-18); CALCIUM 8.8 mg/dl (8.5-10.1); CARBON DIOXIDE 25 mmol/L (21-32); CREATININE 1.16 mg/dl (0.60-1.40); GLUCOSE 144 mg/dl (70-99); LIPASE 122 U/L (73-393); POTASSIUM 3.9 mmol/L (3.5-5.1); SODIUM 139 mmol/L (136-145)
[2018-01-27 12:56] LABS: ALKALINE PHOSPHATASE 68 U/L (45-117)
[2018-01-27] MEDS ORDERED: ASPIRIN 324 MG CHEW PO STA (13:05)
[2018-01-27] MEDS ORDERED: NITROGLYCERIN 0.4 MG SL PER TAB CHARGE SL PRN ×2 (13:15→14:30)
[2018-01-27 14:12] VITALS: O2SAT 94; Ht 175.3 cm; Wt 106.5 kg
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
[2018-01-27] MEDS ORDERED: ASPIRIN 81 MG CHEW PO STA (14:25)
[2018-01-27] MEDS ORDERED: MAGNESIUM HYDROXIDE SUSP 30 ML UDC PO PRN (14:30)
[2018-01-27] MEDS ORDERED: ONDANSETRON INJ 2 MG/ML 2 ML VIAL IV PRN (14:30)
[2018-01-27] MEDS ORDERED: ACETAMINOPHEN 325 MG TAB PO PRN (14:30)
[2018-01-27] MEDS ORDERED: ZOLPIDEM TARTRATE 5 MG TAB PO PRN ×2 (14:30)
[2018-01-27] MEDS ORDERED: MoRPHine SULFATE 2 MG/ML CARP IV PRN (14:30)
[2018-01-27] MEDS ORDERED: ALUMINUM/MAGNESIUM/SIMETH (MAALOX MAX) 30 ML UDC PO PRN (14:30)
[2018-01-27] MEDS ORDERED: POLYETHYLENE (MIRALAX) 17 GM PACK PO PRN (14:30)
[2018-01-27 14:56] VITALS: O2SAT 94
[2018-01-27 16:00] VITALS: BP 157/79; PULSE 49; TEMP 36.7; O2SAT 95
[2018-01-27] MEDS ORDERED: ENOXAPARIN 40 MG/0.4 ML SYR SC SCH (16:00)
[2018-01-27] MEDS ORDERED: IV FLUIDS COMPLETED PRN (16:30)
[2018-01-27] MEDS: SODIUM CHLORIDE 0.9% 1000ML 1,000 ML IV SCH (16:51)
--- NOTE | 2018-01-27 17:34 | Cardiology Consultation ---
Cardiology Consultation Date of Consultation: Jan 27, 2018. Requesting Physician: Kike Reason for Consultation: CHest pain Pt evaluation today including: conversation w/ patient, conversation w/ family , physical exam, chart review, lab review, review of studies, review of inpatient medication list History of Present Illness The patient is a 47-year-old gentleman without a known history of cardiac disease who has been experiencing episodes of mild chest discomfort and left arm pain. Patient states that for several days he has not felt well. Most of his symptoms involve a sense of nausea and dry heaves. During the past few days he has had a couple of episodes of some mild epigastric and precordial discomfort. He describes this as very mild in severity perhaps 1-2 in severity out of 10. It is sort of a dull sensation in the middle of the precordium. Is not associated with exertion or change in position. It tends to happen at rest. He states that the symptoms commonly last a few minutes and then resolved without any particular intervention. He has also had some symptoms of left arm discomfort. He states that last evening he had an extended episode of left arm discomfort. It was difficult for him to get comfortable in bed. Based on the nature that symptom E felt like an evaluation was necessary. He did not have an extended period of chest discomfort. He has not had associated dyspnea. He continues to have an element of anorexia and abdominal complaints such as nausea. He has had frequent bowel movements but no specific diarrhea. He cannot recall any recent fevers or chills. Prior to this illness the patient is an active individual. He is accustomed to routine labor and does not report symptoms of chest discomfort or limiting dyspnea. He has had a sense of dizziness lately but no overt syncope. He has a rare flutter which is fleeting in nature and not associated with other symptoms. Past Medical/Surgical History Hyperlipidemia Essential tremor Past surgical history Cholecystectomy Left femoral fracture and repair Family History Hypertension No premature coronary disease Social History Smoking Status: Never Smoker History of Alcohol Use: No Patient uses smokeless tobacco. Currently employed by [employer] Review of Systems Per HPI All Other Systems: Reviewed and Negative Allergies Coded Allergies: No Known Allergies (Unverified , 01/27/18) Medications Current Inpatient Medications Medications (Trade) Dose Ordered Sig/Elton Route Start Time Stop Time Status Last Admin Dose Admin Ondansetron HCl (Zofran Odt) 4 mg Q6H SL 01/27/18 16:00 02/26/18 15:59 Pravastatin Sodium (Pravachol Tab) 10 mg DAILY PO 01/28/18 09:00 02/27/18 08:59 Pantoprazole Sodium (Protonix Tab) 40 mg QAM PO 01/28/18 09:00 02/27/18 08:59 Enoxaparin Sodium (Lovenox Inj) 40 mg Q24H SC 01/27/18 16:00 02/26/18 15:59 01/27/18 16:51 40 MG Sodium Chloride 1,000 ml @ 80 mls/hr [id number] IV 01/27/18 14:25 02/26/18 14:24 01/27/18 16:51 80 MLS/HR Acetaminophen (Tylenol Tab) 650 mg Q4H PRN PO 01/27/18 14:30 02/26/18 14:29 Al Hydrox/Mg Hydrox/Simethicone (Maalox Max Susp) 15 ml Q4H PRN PO 01/27/18 14:30 02/26/18 14:29 Magnesium Hydroxide (Milk Of Magnesia Susp) 30 ml Q12H PRN PO 01/27/18 14:30 02/26/18 14:29 Zolpidem Tartrate (Ambien Tab) 5 mg HSZ PRN PO 01/27/18 14:30 02/26/18 14:29 Zolpidem Tartrate (Ambien Tab) 5 mg HSZ PRN PO 01/27/18 14:30 02/26/18 14:29 Ondansetron HCl (Zofran Inj) 4 mg Q6H PRN IV 01/27/18 14:30 02/26/18 14:29 Nitroglycerin (Nitrostat Tab) 0.4 mg UD PRN SL 01/27/18 14:30 02/26/18 14:29 Morphine Sulfate (MoRPHine SULFATE INJ) 2 mg Q30M PRN IV 01/27/18 14:30 02/10/18 14:29 Aspirin (Ecotrin Tab) 325 mg QAM PO 01/28/18 09:00 02/27/18 08:59 Polyethylene (Miralax Powder Packet) 17 gm DAILY PRN PO 01/27/18 14:30 02/26/18 14:29 Propranolol HCl (Inderal Tab) 20 mg BID PO 01/27/18 21:00 02/26/18 20:59 Miscellaneous (Iv Fluids Completed) 1 ea PRN PRN N/A 01/27/18 16:30 01/27/19 16:29 Physical Exam Vital Signs Past 12 Hours Date Time Temp Pulse Resp B/P (MAP) Pulse Ox O2 Delivery O2 Flow Rate FiO2 01/27/18 14:56 51 18 136/78 94 Room Air 01/27/18 14:12 94 Room Air 01/27/18 13:51 54 18 122/64 94 Room Air 01/27/18 13:09 54 18 137/79 95 Room Air 01/27/18 12:30 54 01/27/18 12:02 55 18 137/79 95 Room Air 01/27/18 11:55 95 Room Air 01/27/18 11:43 36.4 58 20 154/89 95 Room Air The patient is alert and oriented. Mood and affect appeared normal. He answered all questions appropriately. HEENT: Pupils are equal and reactive to light and accommodation. Extraocular movements are intact. The sclerae are anicteric. Neuro: Cranial nerves intact Neck: Patient's neck is supple. He has palpable carotid pulses bilaterally without bruits on auscultation. There is no evidence of jugular venous distention. The thyroid is not enlarged. Lungs: Clear to auscultation bilaterally. He has good air movement without use of accessory muscles. No rales wheezes or rhonchi. Cardiac: Heart demonstrates a regular rate and rhythm. Normal S1 and S2. No murmurs on examination. Pulses: The patient has palpable radial pulses bilaterally that are equal in intensity Extremities: There was no evidence of hypoperfusion. There is no cyanosis or clubbing. There is no edema. Skin: I did not appreciate any rashes on examination today. Data Laboratory Results: Last 24 Hours Test 01/27/18 12:00 01/27/18 14:25 White Blood Count 11.16 K/uL Red Blood Count 5.20 M/uL Hemoglobin 15.6 g/dL Hematocrit 43.9 % Mean Corpuscular Volume 84.4 fL Mean Corpuscular Hemoglobin 30.0 pg Mean Corpuscular Hemoglobin Concent 35.5 g/dl Platelet Count 248 K/uL Mean Platelet Volume 9.6 fL Neutrophils (%) (Auto) 75.4 % Lymphocytes (%) (Auto) 17.6 % Monocytes (%) (Auto) 5.7 % Eosinophils (%) (Auto) 0.7 % Basophils (%) (Auto) 0.2 % Neutrophils # (Auto) 8.42 K/uL Lymphocytes # (Auto) 1.96 K/uL Monocytes # (Auto) 0.64 K/uL Eosinophils # (Auto) 0.08 K/uL Basophils # (Auto) 0.02 K/uL RDW Standard Deviation 40.9 fL RDW Coefficient of Variation 13.5 % Immature Granulocyte % (Auto) 0.4 % Immature Granulocyte # (Auto) 0.04 K/uL Prothrombin Time 10.1 SECONDS Prothromb Time International Ratio 1.0 Activated Partial Thromboplast Time 26.2 SECONDS Partial Thromboplastin Ratio 1.0 D-Dimer 370 ug/L FEU Sodium Level 139 mmol/L Potassium Level 3.9 mmol/L Chloride Level 107 mmol/L Carbon Dioxide Level 25 mmol/L Anion Gap 7.0 mmol/L Blood Urea Nitrogen 11 mg/dl Creatinine 1.16 mg/dl Est Creatinine Clear Calc Drug Dose 93.1 ml/min Estimated GFR () 85.2 Estimated GFR (Non- 73.5 BUN/Creatinine Ratio 9.5 Random Glucose 144 mg/dl Calcium Level 8.8 mg/dl Total Bilirubin 0.6 mg/dl Direct Bilirubin 0.1 mg/dl Aspartate Amino Transf (AST/SGOT) 25 U/L Alanine Aminotransferase (ALT/SGPT) 38 U/L Alkaline Phosphatase 68 U/L Troponin I < 0.015 ng/ml Pro-B-Type Natriuretic Peptide 164 pg/ml Total Protein 7.0 gm/dl Albumin 3.6 gm/dl Lipase 122 U/L Imaging: Chest x-ray was normal EKG: Normal sinus rhythm. Some very nonspecific ST and T-wave changes in lateral precordial leads Telemetry reviewed: Sinus rhythm Assessment & Plan 1. Atypical chest pain: Patient had an extended episode of arm discomfort which did not resolve in any abnormal biomarkers. That symptom in and of itself is not appear to be related to cardiac ischemia. He has some more fleeting and mild symptoms of chest discomfort. These cannot definitively be excluded as cardiac although they are atypical. He otherwise has been a very active individual without symptoms of angina or coronary insufficiency. I think he could easily be evaluated with provocative testing such as treadmill test. I will order this for tomorrow. In the absence of any abnormality he should engage in continued cardiac risk factor modification
[2018-01-27 19:47] VITALS: BP 115/73; PULSE 50; TEMP 36.6; O2SAT 95
[2018-01-27] MEDS ORDERED: PROPRANOLOL HCL 10 MG TAB PO SCH (21:00)
[2018-01-27] MEDS: ONDANSETRON 4MG OD TAB SL SCH (22:00)
[2018-01-27 23:15] VITALS: BP 156/83; PULSE 83; TEMP 36.8; O2SAT 99
[2018-01-28] MEDS: ONDANSETRON 4MG OD TAB SL SCH ×2 (04:00→10:00)
[2018-01-28] MEDS: SODIUM CHLORIDE 0.9% 1000ML 1,000 ML IV SCH (04:25)
[2018-01-28 04:51] VITALS: BP 119/74; PULSE 51; TEMP 36.5; O2SAT 97
[2018-01-28 06:38] LABS: BASO % 0.4 %; BASO ABS # 0.03 K/uL (0-0.2); EOS % 1.5 %; EOS ABS # 0.11 K/uL (0-0.5); HEMATOCRIT 39.4 % (42-52); HEMOGLOBIN 14.1 g/dL (14.0-18.0); IG# 0.02 K/uL (0.00-0.02); LYMPH % 29.2 %; MEAN CELL VOLUME 85.1 fL (80-100); MEAN CORPUSCULAR HEMOGLOBIN 30.5 pg (25-34); MEAN CORPUSCULAR HGB CONC 35.8 g/dl (32-36); MEAN PLATELET VOLUME 9.1 fL (7.4-10.4); MONO % 9.5 %; MONO ABS # 0.68 K/uL (0.11-0.59); NEUT % 59.1 %; NEUT ABS # 4.25 K/uL (1.4-6.5); PLATELET COUNT 177 K/uL (130-400); RED CELL DISTRIBUTION WIDTH CV 13.6 % (11.5-14.5); RED CELL DISTRIBUTION WIDTH SD 41.5 fL (36.4-46.3); WHITE BLOOD COUNT 7.19 K/uL (4.8-10.8)
[2018-01-28 07:02] LABS: HEMOGLOBIN A1C 5.3 % (4.5-5.6)
[2018-01-28 07:13] LABS: CALCIUM 8.3 mg/dl (8.5-10.1); CREATININE 0.99 mg/dl (0.60-1.40); POTASSIUM 3.7 mmol/L (3.5-5.1)
[2018-01-28 07:18] LABS: TOTAL PROTEIN 5.9 gm/dl (6.4-8.2)
[2018-01-28 07:49] VITALS: BP 121/63; PULSE 59; TEMP 37; O2SAT 96
[2018-01-28] MEDS ORDERED: PANTOprazole SOD 40 MG TAB PO SCH (09:00)
[2018-01-28] MEDS ORDERED: PRAVASTATIN SOD 10 MG TAB PO SCH (09:00)
[2018-01-28] MEDS ORDERED: ASPIRIN 325 MG ECTAB PO SCH (09:00)
[2018-01-28] MEDS ORDERED: PERFLUTREN LIPID MICROSPHERE (DEFINITY) IV ONE (09:35)
[2018-01-28 11:24] VITALS: BP 143/83; PULSE 70; TEMP 37; O2SAT 95
--- NOTE | 2018-01-28 12:45 | EXERCISE STRESS ECHO ---
*NOTICE TO RECEIVING LIBERTARIAN AGENCY This information is strictly Confidential and protected under [place] law. [place] law prohibits you from making any further disclosure of this information unless further disclosure is expressly permitted by the written consent of the person to whom it pertains or is authorized by law. A general authorization for the release of medical or other information is not sufficient for this purpose. Hospital accepts no responsibility if the information is made available to any other person, INCLUDING THE PATIENT. Interpretation Summary * Name: RANDY ZIMMERMAN Study Date: 01/28/2018 08:01 AM BP: 124/86 mmHg * Patient Location: C.2T\S\S230\S\1 HR: 56 * : 1970 (M/d/yyyy) Gender: Male Height: 69 in * Age: 47 yrs Ethnicity: CA Weight: 236 lb * Ordering Physician: Freddy Cage * Referring Physician: Self, Referred * Performed By: Winsome Butler RDCS * * Reason For Study: Chest Pain * BSA: 2.2 m2 * -- Conclusions -- * There is borderline concentric left ventricular hypertrophy * . * Normal exercise echocardiogram without evidence of inducible ischemia Procedure Details * ECHOEX, CPT #68727 * ECHO DOPPLER, CPT #[id number] * ECHO COLOR FLOW, CPT #[id number] * A contrast injection of Definity was performed to improve assessment of LV function. * Contrast was injected into an intravenous site in the right arm. * One vial of Definity ultrasound contrast was diluted in normal saline to a total volume of 10 ml. A total of '2' ml of solution was administered during imaging. * Lot # [id number] of Definity utilized for procedure. * Expiration date . * The attending nurse who injected the contrast agent was Drea Navarro RN. Left Ventricular Findings with Stress * Normal exercise echocardiogram without evidence of inducible ischemia Left Ventricle * The left ventricle is normal in size. * There is borderline concentric left ventricular hypertrophy. * Ejection Fraction = 55-60%. * The left ventricular wall motion is normal at rest. Right Ventricle * The right ventricle is normal in size and function. * The right ventricular systolic function is normal as assessed by tricuspid annular plane systolic excursion (TAPSE) (normal >1.5 cm). Atria * The left atrial size is normal. * Right atrial size is normal. Mitral Valve * The mitral valve leaflets appear normal. There is no evidence of stenosis, fluttering, or prolapse. * Significant mitral regurgitation is absent. Tricuspid Valve * The tricuspid valve is not well visualized, but is grossly normal. * There is trace tricuspid regurgitation. Aortic Valve * The aortic valve is normal in structure and function. * The aortic valve is trileaflet. * No hemodynamically significant valvular aortic stenosis. * There is no significant aortic regurgitation. Pulmonic Valve * The pulmonic valve is not well visualized. Great Vessels * The aortic root is normal size. Pericardium * There is no pericardial effusion. Stress Parameters * Normal baseline electrocardiogram. * Stress ECG: No ST changes. No arrhythmias. * Rest heart rate was '56' BPM. * Rest blood pressure was '124/86' * Maximum heart rate achieved was 150 bpm. * Maximum heart rate was 87 % of maximum age-predicted heart rate. * Maximum blood pressure was '186/80' * Total exercise time was '09:36' * Maximum exercise MET level achieved was '11.00' METS * Maximum treadmill speed was '16.00' miles per hour. * Maximum treadmill elevation was '4.20'% grade. Left Ventricular Findings with Stress * Normal baseline EKG No significant ST or T-wave changes with exercise Baseline echocardiogram revealed normal wall motion with normal LV systolic function There is normal augmentation of all segments without development of ischemia at peak exertion There was a hypertensive response to exercise No arrhythmias Jean treadmill score: 9.5 (low risk) MMode 2D Measurements and Calculations IVSd 1.2 cm IVSs 1.2 cm LVIDd 3.4 cm LVIDs 2.2 cm LVPWd 1.0 cm LVPWs 1.5 cm IVS/LVPW 1.2 FS 35.4 % EDV(Teich) 47.2 ml ESV(Teich) 16.1 ml EF(Teich) 65.9 % EDV(cubed) 39.1 ml ESV(cubed) 10.6 ml EF(cubed) 73.0 % % IVS thick -0.60 % % LVPW thick 39.9 % LV mass(C)d 118.6 grams LV mass(C)dI 53.5 grams/m\S\2 LV mass(C)s 87.7 grams LV mass(C)sI 39.6 grams/m\S\2 SV(Teich) 31.1 ml SI(Teich) 14.0 ml/m\S\2 SV(cubed) 28.5 ml SI(cubed) 12.9 ml/m\S\2 Ao root diam 3.1 cm Ao root area 7.8 cm\S\2 ACS 1.8 cm LA dimension 3.4 cm LA/Ao 1.1 LVAd ap4 33.8 cm\S\2 LVLd ap4 8.3 cm EDV(MOD-sp4) 114.8 ml EDV(sp4-el) 116.9 ml LVAs ap4 19.5 cm\S\2 LVLs ap4 6.8 cm ESV(MOD-sp4) 46.6 ml ESV(sp4-el) 47.1 ml EF(MOD-sp4) 59.4 % EF(sp4-el) 59.7 % LVAd ap2 26.0 cm\S\2 LVLd ap2 8.0 cm EDV(MOD-sp2) 73.9 ml EDV(sp2-el) 71.2 ml LVAs ap2 16.1 cm\S\2 LVLs ap2 6.9 cm ESV(MOD-sp2) 33.3 ml ESV(sp2-el) 32.0 ml EF(MOD-sp2) 55.0 % EF(sp2-el) 55.0 % LVLd %diff -3.36 % EDV(MOD-bp) 92.3 ml LVLs %diff 0.15 % ESV(MOD-bp) 39.4 ml EF(MOD-bp) 57.3 % SV(MOD-sp4) 68.2 ml SI(MOD-sp4) 30.8 ml/m\S\2 SV(MOD-sp2) 40.7 ml SI(MOD-sp2) 18.4 ml/m\S\2 SV(MOD-bp) 52.9 ml SI(MOD-bp) 23.9 ml/m\S\2 SV(sp4-el) 69.8 ml SI(sp4-el) 31.5 ml/m\S\2 SV(sp2-el) 39.2 ml SI(sp2-el) 17.7 ml/m\S\2 Doppler Measurements and Calculations MV E max mariana 90.7 cm/sec MV A max mariana 79.2 cm/sec MV E/A 1.1 MV dec time 0.25 sec Ao V2 max 126.3 cm/sec Ao max PG 6.4 mmHg Ao max PG (full) 2.6 mmHg LV V1 max PG 3.8 mmHg LV V1 max 96.9 cm/sec PA V2 max 107.8 cm/sec PA max PG 4.7 mmHg PI max mariana 132.7 cm/sec PI max PG 7.0 mmHg PI dec slope 91.3 cm/sec\S\2 PI P1/2t 425.6 msec TR max mariana 235.0 cm/sec
--- NOTE | 2018-01-28 13:13 | Discharge Summary ---
Discharge Summary Date of Service Jan 28, 2018. Discharge Summary Admission Date: Jan 27, 2018 at 14:29 Discharge Date: February 27, 2018 Discharge Disposition: Home Principal Diagnosis: Atypical chest pain Medication Reconciliation New Medications: Amlodipine Besylate (Amlodipine Besylate) 5 Mg Tab 5 MG PO DAILY for 30 Days, #30 TAB Continued Medications: Omeprazole (Prilosec) 40 Mg Cap 40 MG PO DAILY, #30 CAP Ondasetron Odt (Zofran Odt) 4 Mg Tab 4 MG SL Q6H for Nausea, #15 TAB Pravastatin Sodium (Pravastatin Sodium) 10 Mg Tab 10 MG PO DAILY, TAB Discontinued Medications: Propranolol Hcl (Propranolol Hcl) 40 Mg Tab 40 MG PO BID, TAB DO NOT STOP THIS MEDICATION ABRUPTLY Discharge Exam Review of Systems Review of system Constitutional: No fever / no chills / no sweats / no weakness / no fatigue Eyes: no blurring of vision / no eye pain / no discharge / no redness ENT: no hearing loss / no epistaxis /no swallowing problems Respiratory: no cough / no wheezing / no SOB / no hemoptysis Cardiovascular: Substernal chest pain with left arm numbness/ no lower extremity edema / no palpitation Abdomen: no pain /dry heaves with nausea/ no vomiting / no constipation Musculoskeletal: no joint pain / no muscle pain / no joint swelling Genitourinary: no dysuria / no incontinence / no urinary retention Neurologic: no focal weakness / no numbness/tingling / no ataxia Psychiatric: no depression symptoms / no anxiety / no insomnia Endocrine: no excessive thirst / no excessive urination Hematologic: no abnormal bleeding / no bruising / no LN swelling Skin: No rash / no pallor Physical Exam General patient appears to be comfortable, not in acute distress HEENT: Atraumatic , normocephalic /no jaundice /no pallor /anicteric /no dry mucous membrane /normal external ear inspection Neck: Supple /no swelling /central trach Heart: S1/S2 normal/regular rate and rhythm/no gallop /no rub /no murmur Lungs: Clear to auscultation bilaterally/no use of accessory muscles of respiration Abdomen: Soft/has minimal tenderness in right upper quadrant/no guarding/no rebound/no organomegaly/no pulsatile mass Musculoskeletal: No swelling/no edema/no tenderness/normal range of motion Neuro exam: Awake alert oriented 3/cranial nerves II through XII appear to be intact/sensation intact/moves all extremities/no abnormal movements Psychiatric evaluation: No depressed mood/normal affect Skin: No rash on exposed skin area/no erythema Extremity: Normal pulse/no pitting edema/no clubbing or cyanosis Endocrine/lymphatic: No obvious lymphadenopathy /no lymphedema Hospital Course The patient is a 47-year-old gentleman without a known history of cardiac disease who has been experiencing episodes of mild chest discomfort and left arm pain. Patient states that for several days he has not felt well. Most of his symptoms involve a sense of nausea and dry heaves. During the past few days he has had a couple of episodes of some mild epigastric and precordial discomfort. He describes this as very mild in severity perhaps 1-2 in severity out of 10. It is sort of a dull sensation in the middle of the precordium. Is not associated with exertion or change in position. It tends to happen at rest. He states that the symptoms commonly last a few minutes and then resolved without any particular intervention. He has also had some symptoms of left arm discomfort. He states that last evening he had an extended episode of left arm discomfort. It was difficult for him to get comfortable in bed. Based on the nature that symptom E felt like an evaluation was necessary. He did not have an extended period of chest discomfort. He has not had associated dyspnea. He continues to have an element of anorexia and abdominal complaints such as nausea. He has had frequent bowel movements but no specific diarrhea. He cannot recall any recent fevers or chills. Prior to this illness the patient is an active individual. He is accustomed to routine labor and does not report symptoms of chest discomfort or limiting dyspnea. He has had a sense of dizziness lately but no overt syncope. He has a rare flutter which is fleeting in nature and not associated with other symptoms. Patient had negative markers and negative stress test. Patient was admitted under observation and discharge the following day. Perhaps symptoms may be due to esophageal spasm. Patient will taper off beta blockers and start calcium channel blockers Total Time Spent: Greater than 30 minutes This includes examination of the patient, discharge planning, medication reconciliation, and communication with other providers. Discharge Instructions Please refer to the electronic Patient Visit Report (Discharge Instructions) for additional information. Follow-Up As noted on discharge instructions.
[2018-01-28] MEDS ORDERED: LISI-461 PO (13:40)
--- NOTE | 2018-01-28 13:41 | Discharge Instructions ---
Discharge Instructions Date of Service Jan 28, 2018. Admission Reason for Admission: Chest Pain Discharge Discharge Diagnosis / Problem: Chest pain Discharge Goals Goal(s): Decrease discomfort, Improve function Activity Recommendations Activity Limitations: resume your previous activity . Instructions / Follow-Up Instructions / Follow-Up Followup with PCP in 1-2 weeks Take half a tablet of Propranolol twice a day for one week. Take half a tablet of propranolol once a day for one week. Start the new medicine Amlodipine in 1 week. Current Hospital Diet Patient's current hospital diet: Regular Diet Discharge Diet Recommended Diet: Regular Diet Pending Studies Studies pending at discharge: no Laboratory Results Hemoglobin A1c Test 01/28/18 06:18 Range/Units Estimated Average Glucose 105 mg/dl Hemoglobin A1c 5.3 4.5-5.6 % Lipid Panel Test 01/28/18 06:18 Range/Units Triglycerides Level 190 H 0-150 mg/dl Cholesterol Level 129 0-200 mg/dl HDL Cholesterol 28 mg/dl Cholesterol/HDL Ratio 4.6 LDL Cholesterol, Calculated 63 mg/dl Medical Emergencies . Who to Call and When: Medical Emergencies: If at any time you feel your situation is an emergency, please call 911 immediately. . Non-Emergent Contact Non-Emergency issues call your: Primary Care Provider Call Non-Emergent contact if: you have any medication questions . . "Provider Documentation" section prepared by Harpal Webster. .
[2018-01-28] MEDS ORDERED: NRV5 PO (14:01)
[2018-01-28 14:24] VITALS: BP 143/83; PULSE 70; TEMP 37; O2SAT 95
== END 2018-01-28 15:24 | disposition home or self-care (01) ==
LOC: C.EDB 11:43 → C.2T 14:29 → ENRESERV 14:43
PROVIDERS: ADMIT Internal Medicine; ATTEND Internal Medicine
DX: R07.89 Other chest pain (principal); R00.1 Bradycardia, unspecified; E78.5 Hyperlipidemia, unspecified; K44.9 Diaphragmatic hernia without obstruction or gangrene; G25.0 Essential tremor; E66.9 Obesity, unspecified; F17.220 Nicotine dependence, chewing tobacco, uncomplicated; Z79.899 Other long term (current) drug therapy; Z82.49 Family history of ischemic heart disease and other diseases of the circulatory system

== ENCOUNTER 2019-11-30 04:59 | Observation (INO) ==
--- OUTSIDE RECORDS SUMMARY | 2019-11-30 05:01 | External Medical Summary | Continuity of Care Document ---
:1970 Author Name Lizeth Upton Address Unavailable Unavailable , Care Team Providers Name Role Phone Fauzia Upton Unavailable [email or web address] Unavailable Unavailable Problems Active medical history not documented Allergies and Adverse Reactions Allergy history not documented Medications Medications not documented Procedures Procedures not documented Immunizations Immunizations not documented Plan of Treatment Planned Observations Planned Goals not documented Results No Known Results Results not documented
--- OUTSIDE RECORDS SUMMARY | 2019-11-30 05:02 | External Medical Summary | Continuity of Care Document ---
:1970 Author Name Lizeth Upton Address Unavailable Unavailable , Care Team Providers Name Role Phone Fauzia Upton Unavailable [email or web address], UNKNOWN Unavailable Unavailable Problems Active medical history not documented Allergies and Adverse Reactions Allergy history not documented Medications Medications not documented Procedures Procedures not documented Immunizations Immunizations not documented Plan of Treatment Planned Observations Planned Goals not documented Results No Known Results Results not documented
[2019-11-30 05:32] LABS: Basophils # (auto) 0.02 K/uL (0-0.2); Basophils % (auto) 0.3 %; Eosinophils % (auto) 1.4 %; Hematocrit (blood only) 45.8 % (42-52); Hemoglobin 16.7 g/dL (14.0-18.0); Immature Granulocytes # (auto) 0.02 K/uL (0.00-0.02); Immature Granulocytes % (auto) 0.3 %; Lymphocytes # (auto) 1.46 K/uL (1.2-3.4); Lymphocytes % (auto) 20.1 %; Mean Corpuscular Hemoglobin 30.8 pg (25-34); Mean Corpuscular Hgb Conc 36.5 g/dL (32-36); Mean Corpuscular Volume 84.3 fL (80-100); Monocytes # (auto) 0.76 K/uL (0.11-0.59); Monocytes % (auto) 10.4 %; Neutrophils # (auto) 4.92 K/uL (1.4-6.5); Neutrophils % (auto) 67.5 %; Platelet Count 241 K/uL (130-400); RDW Coefficient of Variation 13.2 % (11.5-14.5); RDW Standard Deviation 40.3 fL (36.4-46.3); Red Blood Count 5.43 M/uL (4.7-6.1); White Blood Count 7.28 K/uL (4.8-10.8)
[2019-11-30 05:48] LABS: Partial Thromboplastin Ratio 0.9; Partial Thromboplastin Time 25.6 Seconds (21.0-31.0); Prothrombin Time 9.8 Seconds (9.0-12.0)
[2019-11-30 05:56] LABS: Alanine Aminotransferase 31 U/L (12-78); Albumin Level 3.7 gm/dl (3.4-5.0); Aspartate Aminotransferase 24 U/L (15-37); BUN Creatinine Ratio 11.4 (10-20); Blood Urea Nitrogen 12 mg/dl (7-18); Calcium 8.8 mg/dl (8.5-10.1); Carbon Dioxide 23 mmol/L (21-32); Chloride 108 mmol/L (98-107); Creatinine Clr Calc Pharmacy 99.1 ml/min; Est GFR (Non-African American) 83.7; Glucose 119 mg/dl (70-99); Lipase 85 U/L (73-393); Potassium 3.6 mmol/L (3.5-5.1); Sodium 137 mmol/L (136-145)
[2019-11-30 06:01] LABS: Albumin Globulin Ratio 1.1 (0.9-2); Alkaline Phosphatase 69 U/L (45-117); Bilirubin,Total 0.8 mg/dl (0.2-1); Globulin 3.5 gm/dl (2.5-4.0); Total Protein 7.2 gm/dl (6.4-8.2); Troponin I < 0.015 ng/ml (0-0.045)
--- NOTE | 2019-11-30 06:35 | XRay Report ---
XR chest 1V portable HISTORY: 49 years-old Male Chest Pain acute atypical chest pain COMPARISON: Chest radiograph 01/07/2019 TECHNIQUE: Portable AP view of the chest FINDINGS: Cardiomediastinal and hilar silhouettes are within normal limits. No pneumothorax, pleural effusion, focal airspace consolidation or overt pulmonary edema. Bones of the chest appear grossly intact. IMPRESSION: No acute process. ACT 112: Negative or not required by law. The above report was generated using voice recognition software. It may contain grammatical, syntax o r spelling errors. Electronically signed by: Stefan Booth M.D. 11/30/2019 6:34 AM
--- NOTE | 2019-11-30 07:42 | Emergency Department Note ---
Entered by Angeli Acosta acting as a scribe for Lachelle Johns DO History of Present Illness General Chief complaint: Chest Pain Stated complaint: CHEST PAIN Time Seen by Provider: 11/30/19 05:06 Source: patient History of Present Illness Provider complaint: chest pain Onset (ago): hour(s) 1 Location: chest (mid) Pain Consistency: + now resolved Maximum Pain Intensity: 8 Quality: + dull Associated symptoms: + headaches and + other (+dizziness) Treatments prior to arrival: none The patient is a 49 year old male who presents to the Emergency Room with complaints of an episode of dull mid chest pain an hour ago. The patient notes that he was in the passenger of a car at work when the pain started. He notes that the pain lasted an hour and it has since now resolved. He mentions that during his episode his right arm was shaking. He describes this episode as scary for him. The patient mentions that he was experiencing dizziness last night and now has a headache over his right eye. He states that he has a history of hypertension and high cholesterol. He notes that he has a history of heart burn, but notes that this pain feels different. The patient reports that he had a stress test done a year ago which was negative. He denies any family history of cardiac issues. He denies any changes in his medications. He denies any treatment prior to arrival. Home Medications Home Medications Medication Instructions Recorded Confirmed Type amlodipine 5 mg PO QAM 09/24/18 11/30/19 History omega 3-tif-rgs-fish oil [Fish Oil] 1 cap PO BID 09/24/18 11/30/19 History omeprazole 40 mg PO QAM 09/24/18 11/30/19 History pravastatin 10 mg PO HS 09/24/18 11/30/19 History famotidine 20 mg PO BID 11/30/19 11/30/19 History Allergies Allergy/AdvReac Type Severity Reaction Status Date / Time No Known Allergies Allergy Verified 11/30/19 06:34 Past Med/Surg History Medical History HLD (hyperlipidemia) HTN (hypertension) Surgical History Hx of cholecystectomy (Resolved) Social History Preferred Language: Uzbek Feels Safe at Home: Yes Smoking Status: Never smoker Review of Systems See HPI for pertinent positives & negatives. and A total of 10 systems reviewed and were otherwise negative Physical Exam Vital Signs Vital Signs - 24 hr 11/30/19 05:02 11/30/19 05:21 11/30/19 06:04 Temperature 36.3 C L Temperature Source Oral Pulse Rate 72 59 L Pulse Rate [Finger] 57 L 57 L Pulse Rhythm Regular Pulse Rhythm [Finger] Regular Regular Pulse Strength [Finger] Normal Normal Respiratory Rate 20 18 20 Respiratory Effort / Characteristics Non-Labored Non-Labored Spontaneous Non-Labored Spontaneous Respiratory Depth Normal Normal Normal Respiratory Pattern Regular Regular Blood Pressure 170/97 H Blood Pressure [Right Arm] 150/97 H 176/101 H Blood Pressure Mean 121 Blood Pressure Mean [Right Arm] 114 126 Blood Pressure Position [Right Arm] Lying Lying Pulse Oximetry 99 98 98 Oxygen Delivery Method Room Air Room Air Room Air Sepsis Recent Fever Within 48 Hours No Sepsis New/Unexplained Change in Mental Status No Sepsis Action Taken by Nursing No Action Required 11/30/19 06:46 Temperature Temperature Source Pulse Rate Pulse Rate [Finger] 49 L Pulse Rhythm Pulse Rhythm [Finger] Regular Pulse Strength [Finger] Normal Respiratory Rate 18 Respiratory Effort / Characteristics Non-Labored Spontaneous Respiratory Depth Normal Respiratory Pattern Regular Blood Pressure Blood Pressure [Right Arm] 145/87 H Blood Pressure Mean Blood Pressure Mean [Right Arm] 106 Blood Pressure Position [Right Arm] Lying Pulse Oximetry 96 Oxygen Delivery Method Room Air Sepsis Recent Fever Within 48 Hours Sepsis New/Unexplained Change in Mental Status Sepsis Action Taken by Nursing HEENT: Head - normocephalic and atraumatic Pupils are equal, round, and reactive to light. Extraocular eye muscles are intact, and sclera are anicteric. Nose - moist nasal mucosa without discharge. Mouth - moist buccal mucosa. Oropharynx is nonerythematous and there is no tonsillar exudate or edema noted. Neck: Supple; no JVD, nuchal rigidity, cervical lymphadenopathy, or auscultated bruits. Heart: Regular rate and rhythm. There is a normal S1 and S2 with no murmurs, clicks, or gallops appreciated. Lungs: Clear to auscultation bilaterally with no wheezes, rales, or rhonchi. Abdomen: Soft, completely nontender, nondistended, with good bowel sounds. There are no palpable pulsatile masses or hepatosplenomegaly. There is no guarding, rigidity, or rebound noted. Extremities: No evidence of cyanosis, clubbing, or edema. There are easily palpable peripheral pulses. Skin: warm and dry with good turgor and no rashes. Course Course 050: The patient was evaluated in room A12B, and a complete history and physical examination were performed. He was cardiac monitoring. The patient remained in a sinus bradycardia at a rate of 50. An IV lock was initiated and labs were drawn as above. A twelve-lead EKG was obtained as described above. A portable chest x-ray was performed. 06: I reevaluated the patient and updated him on his results. He continues to have episodes of discomfort in the left side of his chest which last for approximately 1 to 2 minutes at a time. He describes feeling a sense of fear du ring these episodes. He describes increased dizziness during these episodes as well. 0638: I reviewed the patient's case with Dr. Pacheco [facility] [address] Hospitalist. He will evaluate the patient for further management. Medical Decision Making Differential Diagnosis Differential diagnoses include but are not limited to GERD, aortic dissection, acute coronary syndrome, and NSTEMI. Medical Records Attestation: I reviewed the patient's medical records. Home Medications Current Medication List: was personally reviewed by me Laboratory Data Attestation: I reviewed the patient's lab results. Result diagrams: 11/30/19 05:15 11/30/19 05:15 Lab Results 11/30/19 11/30/19 11/30/19 Range/Units 05:15 05:15 05:15 WBC 7.28 (4.8-10.8) K/uL RBC 5.43 (4.7-6.1) M/uL Hgb 16.7 (14.0-18.0) g/dL Hct 45.8 (42-52) % MCV 84.3 (80-100) fL MCH 30.8 (25-34) pg MCHC 36.5 H (32-36) g/dL RDW Std Deviation 40.3 (36.4-46.3) fL RDW Coeff of [place] 13.2 (11.5-14.5) % Plt Count 241 (130-400) K/uL MPV 9.0 (7.4-10.4) fL Immature Gran % (Auto) 0.3 % Neut % (Auto) 67.5 % Lymph % (Auto) 20.1 % [place] % (Auto) 10.4 % Eos % (Auto) 1.4 % Baso % (Auto) 0.3 % Immature Gran # (Auto) 0.02 (0.00-0.02) K/uL Neut # (Auto) 4.92 (1.4-6.5) K/uL Lymph # (Auto) 1.46 (1.2-3.4) K/uL [place] # (Auto) 0.76 H (0.11-0.59) K/uL Eos # (Auto) 0.10 (0-0.5) K/uL Baso # (Auto) 0.02 (0-0.2) K/uL PT 9.8 (9.0-12.0) Seconds INR 1.0 (0.9-1.1) APTT 25.6 (21.0-31.0) Seconds PTT Ratio 0.9 Sodium 137 (136-145) mmol/L Potassium 3.6 (3.5-5.1) mmol/L Chloride 108 H (98-107) mmol/L Carbon Dioxide 23 (21-32) mmol/L Anion Gap 6.0 (3-11) BUN 12 (7-18) mg/dl Creatinine 1.03 (0.6-1.4) mg/dl Est Cr Clr Drug Dosing 99.1 ml/min Est GFR ( Amer) 97.0 Est GFR (Non-Af Amer) 83.7 BUN/Creatinine Ratio 11.4 (10-20) Glucose 119 H (70-99) mg/dl Calcium 8.8 (8.5-10.1) mg/dl Total Bilirubin 0.8 (0.2-1) mg/dl AST 24 (15-37) U/L ALT 31 (12-78) U/L Alkaline Phosphatase 69 (45-117) U/L Troponin I < 0.015 (0-0.045) ng/ml Total Protein 7.2 (6.4-8.2) gm/dl Albumin 3.7 (3.4-5.0) gm/dl Globulin 3.5 (2.5-4.0) gm/dl Albumin/Globulin Ratio 1.1 (0.9-2) Lipase 85 (73-393) U/L Imaging Data Attestation: I personally reviewed and interpreted this imaging study as follows: My Impression: CHEST XR: Narrow mediastinum. No pulmonary infiltrate or consolidation. ECG Data Attestation: I personally reviewed and interpreted this ECG as follows: Indication: + chest pain Rate (beats per minute): 57 Rhythm: + sinus bradycardia ECG Findings: + Other (no ischemic changes); no PACs and no PVCs Comparison ECG Date: from (01/07/19) Change: no significant change Blood Pressure Blood Pressure Findings: Elevated blood pressure Blood Pressure Disposition: Referred to patients primary care provider MDM Narrative The patient is a 49 year old male who presents to the Emergency Room with complaints of an episode of dull mid chest pain an hour ago. The patient has intermittent episodes of heartburn but states that this was much different than those episodes. While here in the emergency department, he has had persistent episodes and continues to feel fearful about them. I discussed the case with the [facility] [address] hospitalist and they will evaluate for further management. Impression & Plan Left-sided chest pain Discharge Plan Visit Data Chief Complaint: Chest Pain Stated Complaint: CHEST PAIN ED Provider: Lachelle Johns Discharge Problem: Left-sided chest pain Patient Disposition: Being Evaluated by Hospitalist Forms Stand Alone Forms: My [facility] Prescriptions Prescriptions: No Action amlodipine 5 mg Tablet 5 mg PO QAM RF: 0 omeprazole 40 mg Capsule,Delayed Release(Dr/Ec) 40 mg PO QAM RF: 0 pravastatin 10 mg Tablet 10 mg PO HS RF: 0 omega 3-kww-mxg-fish oil [Fish Oil] 1,000 mg (120 mg-180 mg) Capsule 1 cap PO BID RF: 0 famotidine 20 mg tablet 20 mg PO BID RF: 0 Referrals Referrals: Lexus Howell DO [Primary Care Provider] - The scribe's documentation has been prepared under my direction and personally reviewed by me in its entirety. I confirm that the note above accurately reflects all work, treatment, procedures, and medical decision making performed by me.
--- NOTE | 2019-11-30 08:17 | History and Physical Report ---
DATE OF ADMISSION: 11/30/2019 CHIEF COMPLAINT: Chest pain. HISTORY OF PRESENT ILLNESS: This is a 49-year-old male with past medical history significant for GERD, presents with chest pain. The patient works for [employer], he was in the truck in the passenger's seat, around 4:15 a.m. he started developing chest pain, retrosternal location 8/10 in severity, associated with some shortness of breath and dizziness. It lasted about 1 hour. He came to the ER, by the time that he came to the ER it subsided and now it is coming and going, but not as severe as before. Denies any nausea or sweating during the episode. Currently resting comfortably and hemodynamically stable. No cough, no fever, no chills. He has some mild headache, no blurred vision, no earache, no runny nose, no sore throat, no dysphagia. Appetite is okay. No abdominal pain. Normal bowel and bladder movements. No hematuria or burning micturition, no melena or hematochezia, no swelling in the legs, no rash. ALLERGIES: No known drug allergies. PAST MEDICAL HISTORY: As mentioned above. PAST SURGICAL HISTORY: EGDs, laparoscopic cholecystectomy. MEDICATIONS: The patient is on amlodipine 5 mg daily, Pepcid 20 mg p.o. b.i.d., pravastatin 10 mg p.o. daily. FAMILY HISTORY: No family history on file. SOCIAL HISTORY: . No smoking history. Chews tobacco, alcohol rarely. No drug use. REVIEW OF SYMPTOMS: As per HPI. Rest of review of systems negative. PHYSICAL EXAMINATION: GENERAL: The patient is obese, not in acute distress. VITAL SIGNS: Temperature 36.3, pulse 49, respiratory rate 18, blood pressure 145/87, oxygen 96% on room air. HEENT: No pallor, no icterus. Pupils equal, round, reactive to light. NECK: No JVD, no neck masses, no carotid bruits. CARDIOVASCULAR: S1, S2 heard, regular rate and rhythm, no murmur, no gallop. RESPIRATORY SYSTEM: Normal AP diameter. No accessory muscle use. No wheezing, no crackles. ABDOMEN: Soft, bowel sounds present, nontender. No distention. CENTRAL NERVOUS SYSTEM: Cranial nerves II-XII grossly intact. Nonfocal. EXTREMITIES: No edema, no erythema. LABORATORY DATA: WBC 7.2, hemoglobin 16.7, hematocrit 45.8, platelets 241. PT 29.8, INR 1.0, APTT 25.6. Sodium 137, potassium 3.6, chloride 108, bicarbonate 23, BUN 12, creatinine 1.03, serum glucose 119, calcium 8.8, total bilirubin 0.8, AST 24, ALT 31, alkaline phosphatase 69. Troponin I less than 0.015. Lipase 85. Chest x-ray, no acute process seen. EKG: Sinus bradycardia with the rate of 57, left ventricular hypertrophy, nonspecific T-wave abnormality, no significant change from previous EKG. ASSESSMENT AND PLAN: This 49-year-old male who presents with; 1. Chest pain, rule out acute coronary syndrome. Risk factor of hypertension and age. The patient had a stress test in 01/2018 which was unremarkable. Initial workup is negative except for bradycardia on the monitor We will do serial cardiac enzymes, echocardiogram. We will keep him n.p.o. and consult cardiology for possible stress test. Monitor in tele floor. 2. History of hypertension. Continue amlodipine. 3. Gastroesophageal reflux disease. Continue Pepcid. 4. Hyperlipidemia. Continue statin. 5. Deep vein thrombosis prophylaxis, sequential compression devices. 6. Disposition: Closely monitor. Observe in tele floor. Expect to discharge home and follow with family doctor. Level 1 full code. MTDD
[2019-11-30] MEDS ORDERED: ACETAMINOPHEN 325 MG TAB PO PRN ×2 (08:43→14:56)
[2019-11-30] MEDS ORDERED: ONDANSETRON INJ 2 MG/ML 2 ML VIAL IV PRN (08:43)
[2019-11-30] MEDS ORDERED: NITROGLYCERIN SL 0.4 MG/TAB TAB SL PRN (08:43)
[2019-11-30] MEDS ORDERED: ASPIRIN 81 MG ECTAB PO SCH (09:00)
[2019-11-30] MEDS ORDERED: AMLODIPINE BESYLATE 5 MG TAB PO SCH (09:00)
[2019-11-30] MEDS ORDERED: PANTOprazole 40 MG TAB PO SCH (09:00)
[2019-11-30] MEDS ORDERED: FAMOTIDINE 20 MG TAB PO SCH (09:00)
--- NOTE | 2019-11-30 12:19 | Cardiology Consultation ---
Date of Consultation November 30, 2019 Assessment & Plan (1) Left-sided chest pain: Patient presents with concerning history of severe chest pain rating to back and shoulder with associated dyspnea and lightheadedness. Bradycardic on presentation. Now asymptomatic. Past evaluation by stress testing unrevealing. Discussed options and management in detail with the patient recommended proceeding to diagnostic cardiac catheterization given clinical history and presentation. Procedure and risks explained in detail with patient further recommendations upon completion of the study. Echocardiogram to be reviewed in the interim with preserved LV function on preliminary review. TSH ordered to laboratory studies (2) HLD (hyperlipidemia): History of Present Illness Reason for Consultation: Chest pain Requesting Physician: Dr. Martin Attending Physician: Jorge Martin MD History of Present Illness Patient is a 49-year-old male without prior history of cardiac disease. Underlying issues include hypertension, hyperlipidemia, gastroesophageal reflux low HDL dyslipidemia Patient this morning while sitting in the passenger side of the seat of a vehicle developed severe substernal pain with associated dizziness and shortness of breath. Symptoms lasted nearly an hour before complete resolve. He presented emergency room asymptomatic but bradycardic on examination. No acute ST segment changes on EKG no troponin elevation on initial testing. He notes no fevers chills unexplained infections. Notes no recent GI complaints or reflux. No abdominal back pain. No bleeding difficulties no melena medication dysuria hematuria. He was evaluated approximately 1 and half years ago for similar complaints though more atypical features with negative stress testing at that time. Notes no headache or visual changes no history rheumatic fever scarlet fever renal or hepatic disease. Weight has been gradually trending slightly downward. No claudication symptoms no edema no signs of fluid or volume overload. Notes heart rates have trended slow but no tachypalpitations or syncope Allergies Allergy/AdvReac Type Severity Reaction Status Date / Time No Known Allergies Allergy Verified 11/30/19 06:34 Home Medications Home Medications Medication Instructions Recorded Confirmed Type amlodipine 5 mg PO QAM 09/24/18 11/30/19 History omega 8-ejx-bjs-fish oil [Fish Oil] 1 cap PO BID 09/24/18 11/30/19 History omeprazole 40 mg PO QAM 09/24/18 11/30/19 History pravastatin 10 mg PO HS 09/24/18 11/30/19 History famotidine 20 mg PO BID 11/30/19 11/30/19 History Patient History Medical History HLD (hyperlipidemia) HTN (hypertension) Surgical History Hx of cholecystectomy (Resolved) Social History Preferred Language: Latvian Communication Ability: Effective [place] Required: No Beliefs That Will Affect Care: None Current Living Situation: Spouse Other Information That Helps Us Care for You: No Feels Safe at Home: Yes Safety Concerns: Feels Safe At This Time Smoking Status: Never smoker Do You Dip or Chew Tobacco: No ; Second Hand Ex posure: No ; Tobacco Cessation Education Requested by Patient: No Hx Alcohol Use: No Hx Substance Use: No Review of Systems Review of Systems: All systems reviewed & are unremarkable except as noted in HPI & below Physical Exam Constitutional: WD/WN, vitals as above Eyes: PERRL, conjunctivae normal, anicteric sclerae ENMT: external ear and nose normal, oropharynx normal Neck: trachea midline, no thyromegaly Respiratory: normal respiratory effort, lungs clear to auscultation Cardiovascular: Rate/Rhythm: regular rate and regular rhythm Heart Sounds: normal S1 and normal S2; no gallop and no murmur Palpation: normal PMI Vessels: normal carotid upstroke and radial pulses present; no JVD and no carotid bruit Extremities: no edema Gastrointestinal (Abdomen): normal bowel sounds, soft, nontender, no hepatosplenomegaly Musculoskeletal: no cyanosis or clubbing, extremities motor strength 5/5 Skin: no rashes, warm and dry Neurologic: PERRL, EOMI, accommodation nl, no face palsy, no dysarthria Psychiatric: A+Ox3, euthymic affect Results & Data ([facility]) Vital Signs (Past 12 Hours) Vital Signs Temp Pulse Pulse Resp BP BP BP 11/30/19 08:48 45 L 11/30/19 08:43 36.5 C 66 18 154/93 H 11/30/19 06:46 49 L 18 145/87 H 11/30/19 06:04 57 L 20 176/101 H 11/30/19 05:21 59 L 57 L 18 150/97 H 11/30/19 05:02 36.3 C L 72 20 170/97 H Pulse Ox 11/30/19 08:48 11/30/19 08:43 95 11/30/19 06:46 96 11/30/19 06:04 98 11/30/19 05:21 98 11/30/19 05:02 99 Laboratory Results Laboratory Results - last 24 hr 11/30/19 11/30/19 11/30/19 05:15 05:15 05:15 WBC 7.28 RBC 5.43 Hgb 16.7 Hct 45.8 MCV 84.3 MCH 30.8 MCHC 36.5 H RDW Std Deviation 40.3 RDW Coeff of [place] 13.2 Plt Count 241 MPV 9.0 Immature Gran % (Auto) 0.3 Neut % (Auto) 67.5 Lymph % (Auto) 20.1 [place] % (Auto) 10.4 Eos % (Auto) 1.4 Baso % (Auto) 0.3 Immature Gran # (Auto) 0.02 Neut # (Auto) 4.92 Lymph # (Auto) 1.46 [place] # (Auto) 0.76 H Eos # (Auto) 0.10 Baso # (Auto) 0.02 PT 9.8 INR 1.0 APTT 25.6 PTT Ratio 0.9 Sodium 137 Potassium 3.6 Chloride 108 H Carbon Dioxide 23 Anion Gap 6.0 BUN 12 Creatinine 1.03 Est Cr Clr Drug Dosing 99.1 Est GFR ( Amer) 97.0 Est GFR (Non-Af Amer) 83.7 BUN/Creatinine Ratio 11.4 Glucose 119 H Calcium 8.8 Magnesium Total Bilirubin 0.8 AST 24 ALT 31 Alkaline Phosphatase 69 Troponin I < 0.015 Total Protein 7.2 Albumin 3.7 Globulin 3.5 Albumin/Globulin Ratio 1.1 Lipase 85 11/30/19 11/30/19 08:52 08:52 WBC RBC Hgb Hct MCV MCH MCHC RDW Std Deviation RDW Coeff of [place] Plt Count MPV Immature Gran % (Auto) Neut % (Auto) Lymph % (Auto) [place] % (Auto) Eos % (Auto) Baso % (Auto) Immature Gran # (Auto) Neut # (Auto) Lymph # (Auto) [place] # (Auto) Eos # (Auto) Baso # (Auto) PT INR APTT PTT Ratio Sodium Potassium Chloride Carbon Dioxide Anion Gap BUN Creatinine Est Cr Clr Drug Dosing Est GFR ( Amer) Est GFR (Non-Af Amer) BUN/Creatinine Ratio Glucose Calcium Magnesium 2.1 Total Bilirubin AST ALT Alkaline Phosphatase Troponin I < 0.015 Total Protein Albumin Globulin Albumin/Globulin Ratio Lipase
[2019-11-30] MEDS ORDERED: SODIUM CHLORIDE 0.9% 1000ML 1,000 ML IV SCH ×2 (12:30→15:00)
[2019-11-30] MEDS ORDERED: NiCARDipine HCL INJ 2.5 MG/ML 10 ML AMP ONE (13:14)
[2019-11-30] MEDS ORDERED: fentaNYL citrate 100 MCG/2 ML VIAL ONE (13:14)
[2019-11-30] MEDS ORDERED: NITROGLYCERIN/D5W 100MCG/ML 20ML SYR ONE (13:14)
[2019-11-30] MEDS ORDERED: HEPARIN (PORCINE) 1000 UNIT/ML 10 ML (CATH LAB USE ONLY) ONE (13:14)
[2019-11-30] MEDS ORDERED: MIDAZOLAM HCL 1 MG/ML 2ML VIAL ONE (13:14)
--- NOTE | 2019-11-30 13:52 | Pre Anesthesia Assessment ---
Date of Service November 30, 2019 Pre Sedation Assessment Vital Signs Temp Pulse Pulse Resp BP BP BP 11/30/19 13:35 52 L 18 106/66 11/30/19 12:23 36.7 C 56 L 16 153/93 H 11/30/19 08:48 45 L 11/30/19 08:43 36.5 C 66 18 154/93 H 11/30/19 06:46 49 L 18 145/87 H 11/30/19 06:04 57 L 20 176/101 H 11/30/19 05:21 59 L 57 L 18 150/97 H 11/30/19 05:02 36.3 C L 72 20 170/97 H Pulse Ox 11/30/19 13:35 97 11/30/19 12:23 96 11/30/19 08:48 11/30/19 08:43 95 11/30/19 06:46 96 11/30/19 06:04 98 11/30/19 05:21 98 11/30/19 05:02 99 Cardiovascular RRR, no murmur, no edema Respiratory normal respiratory effort, lungs clear to auscultation + respiratory effort normal Pre-Sedation Airway Assessment Smoking Status: Never smoker Hx Sleep Apnea: No Short, Thick Neck: No Thyromental Distance: > or= 3.5 Finger Breadths Oral Cavity: + WNL Mallampati Class: III ASA: ASA2 NPO Status Date of Last Intake of Fluids: 11/30/19 Time of Last Intake of Fluids: 07:00 Date of Last Intake of Solid Food: 11/29/19 Time of Last Intake of Solid Foods: 22:00 Procedure Planning Contraindications for Sedation: none Current Medications Reviewed: Yes Notes The planned sedation has been discussed with the patient. Informed Consent was obtained. I have identified the patient, determined the appropriateness of sedation and have assessed the patient immediately prior to the procedure. All medicine(s) and interventions are by my order.
--- NOTE | 2019-11-30 14:56 | Electrocardiogram Report ---
Test Reason : Blood Pressure : / mmHG Vent. Rate : 057 BPM Atrial Rate : 057 BPM P-R Int : 144 ms QRS Dur : 082 ms QT Int : 382 ms P-R-T Axes : 049 -11 060 degrees QTc Int : 371 ms Sinus bradycardia Possible Left atrial enlargement Left ventricular hypertrophy Nonspecific T wave abnormality Abnormal ECG When compared with ECG of 07-JAN-2019 06:36, No significant change was found Confirmed by Freddy Cage ([id number]) on 11/30/2019 2:56:03 PM Referred By: REFERRED SELF Confirmed By:Sharad Cage
--- NOTE | 2019-11-30 15:02 | Cardiac Catheterization ---
Cardiac Cath Procedure Brief Procedure Date November 30, 2019 Pre-Procedure Diagnosis Pre-Procedure Diagnosis: Angina AUC Score AUC Score: 7 Post-Procedure Diagnosis Post-Procedure Diagnosis: Normal Coronary Arteries and Normal LV Systolic Function Procedure(s) Performed Procedure(s) Performed: Coronary Angiography, Left Heart Cath and LV Angiography Pharmacy Coordinator Orestes Zepeda MD Show Jumping Instructor(s) Papi Mcguire Estimated Blood Loss Estimated Blood Loss: <15cc Medication(s) Medication(s): Fentanyl (12.5 mcg IV), Heparin (5000 units IV), Lidocaine 1% (Local infiltration access site), Nicardipine (250 mcg intra-arterial after arterial sheath insertion) and Versed (1 mg IV) Preliminary Findings Right dominant coronary anatomy No coronary artery disease Left main extremely short with near separate origins of the left anterior descending and left circumflex no disease Left anterior descending: Type II in distribution with a single large bifurcating diagonal branch arising in its proximal third and 2 large septal branches. There is no disease in the left anterior descending with apical se gment modest in caliber Left circumflex: Very large but nondominant giving rise to a large small first marginal and a large bifurcating second marginal before turning along the AV groove to give rise to 2 posterior lateral branches. There is no disease in the left circumflex. Right coronary artery: Dominant but very small in caliber giving rise to RV branch in its proximal third and acute marginal branch, at the AV groove a single posterior ventricular branch and a small posterior descending artery. There is no disease LV angiography: EF greater than 65% no wall motion abnormalities no mitral insufficiency, left ventricular end-diastolic pressure 18 Recommendations Recommendations: Medical Therapy and/or Counseling Specimens Specimens: None Fluids (cc crystalloids) Fluids (cc crystalloids): 115 Anesthesia Start time: 1400, stop time 1451 Procedural Complication(s) None Disposition PCU
--- NOTE | 2019-11-30 15:10 | Cardiac Catheterization ---
Cardiac Cath Procedure Full Procedure Date November 30, 2019 Pre-Procedure Diagnosis Pre-Procedure Diagnosis: Angina AUC Score AUC Score: 7 Post-Procedure Diagnosis Post-Procedure Diagnosis: Normal Coronary Arteries and Normal LV Systolic Function Procedure(s) Performed Procedure(s) Performed: Coronary Angiography, Left Heart Cath and LV Angiography Cookie Padder Orestes Zepeda MD Professor Of Anthropology(s) Papi Mcguire Estimated Blood Loss Estimated Blood Loss: <15cc Medication(s) Medication(s): Fentanyl (12.5 mcg IV), Heparin (5000 units IV), Lidocaine 1% (Local infiltration access site), Nicardipine (250 mcg intra-arterial after arterial sheath insertion) and Versed (1 mg IV) Summary of Findings Right dominant coronary anatomy No coronary artery disease Left main extremely short with near separate origins of the left anterior descending and left circumflex no disease Left anterior descending: Type II in distribution with a single large bifurcating diagonal branch arising in its proximal third and 2 large septal branches. There is no disease in the left anterior descending with apical segm ent modest in caliber Left circumflex: Very large but nondominant giving rise to a large small first marginal and a large bifurcating second marginal before turning along the AV groove to give rise to 2 posterior lateral branches. There is no disease in the left circumflex. Right coronary artery: Dominant but very small in caliber giving rise to RV branch in its proximal third and acute marginal branch, at the AV groove a single posterior ventricular branch and a small posterior descending artery. There is no disease LV angiography: EF greater than 65% no wall motion abnormalities no mitral insufficiency, left ventricular end-diastolic pressure 18 Impression: Normal coronaries, normal LV systolic function, mildly elevated left end-diastolic pressure Hemodynamics Rest Ao:: 159/91/120 Final Ao: 163/97/126 LV: 173/4/18 Recommendations Recommendations: Medical Therapy and/or Counseling Specimens Specimens: None Radiation Exposure (mGy) 1077 Contrast (mls) 140 Fluids (cc crystalloids) Fluids (cc crystalloids): 115 Anesthesia Start time: 1400, stop time 1451 Procedural Complication(s) None Disposition PCU I attest to the content of the Intraoperative Record and any orders documented therein. Any exceptions are noted below. ACC Data: Claims Vice President Cardiac Status Clinical evaluation leading to the procedure 49-year-old male presented to the emergency room with acute rest chest pain with prior history of stress testing nonrevealing for similar symptoms. Pain described as severe and debilitating on presentation CAD Presenation: Unstable angina (Presenting complaints of rest chest pain) Heart Failure: No Cardiogenic Shock within 24 Hours: No Cardiac Arrest within 24 Hours: No Imaging Studies Past 6 Months: Yes Stress Studies Past 6 Months: No Standard Exercise Test: No Stress Echocardiogram: No Stress Testing w/SPECT MPI: No Cardiac CTA: No Coronary Anatomy Dominant: Right Left Main (% Stenosis): Normal (Very short with near separate origins left anterior setting left main) LAD (% Stenosis): Normal D1 (% Stenosis): Normal Circumflex (% Stenosis): Normal OM1 (% Stenosis): Normal OM2 (% Stenosis): Normal L PL1 (% Stenosis): Normal L PL2 (% Stenosis): Normal RCA (% Stenosis): Normal Left Ventricular Angiography EF (%): 65 Mitral Regurgitation: None Diagnostic Physicians Name: Orestes Zepeda MD Status: Urgent Closure Device Percutaneous Entry Location: Radial (Access site very lateral) Closure Device: Radial Band Recommendations: Medical Therapy and/or Counseling
--- NOTE | 2019-11-30 18:00 | Cardiology Progress Note ---
Date of Service November 30, 2019 Assessment & Plan (1) Left-sided chest pain: No evidence of coronary artery disease by cardiac catheterization Would recommend adding losartan 25 mg/day to amlodipine for hypertension control Follow-up PCP in 1 to 2 weeks Cardiology PRN (2) HLD (hyperlipidemia): Subjective Patient seen and examined, chart, telemetry reviewed. Cardiac catheterization as documented no coronary artery disease of significance . Tolerated procedure well LV systolic function normal Etiology of pain uncertain patient already on amlodipine. Blood pressures elevated recent per patient as well as during procedure Physical Exam Constitutional: WD/WN, vitals as above Eyes: PERRL, conjunctivae normal, anicteric sclerae ENMT: Mallampati Class: III Neck: trachea midline, no thyromegaly Respiratory: normal respiratory effort, lungs clear to auscultation normal respiratory effort Cardiovascular: RRR, no murmur, no edema Rate/Rhythm: regular rate and regular rhythm Heart Sounds: normal S1 and normal S2; no gallop and no murmur Palpation: normal PMI Vessels: normal carotid upstroke and radial pulses present (Access site healing well); no JVD and no carotid bruit Extremities: no edema Gastrointestinal (Abdomen): normal bowel sounds, soft, nontender, no hepatosplenomegaly Musculoskeletal: no cyanosis or clubbing, extremities motor strength 5/5 Skin: no rashes, warm and dry Neurologic: PERRL, EOMI, accommodation nl, no face palsy, no dysarthria Psychiatric: A+Ox3, euthymic affect Results & Data Vital Signs (Past 12 Hours) Vital Signs Temp Pulse Pulse Resp BP BP Pulse Ox 11/30/19 17:11 36.4 C L 60 20 142/92 H 96 11/30/19 16:27 36.8 C 56 L 18 134/82 97 11/30/19 16:11 36.3 C L 54 L 20 164/91 H 99 11/30/19 15:30 57 L 18 127/64 95 11/30/19 15:15 52 L 18 134/84 95 11/30/19 15:00 58 L 17 154/89 H 96 11/30/19 13:35 52 L 18 106/66 97 11/30/19 12:23 36.7 C 56 L 16 153/93 H 96 11/30/19 08:48 45 L 02/26/20 08:43 36.5 C 66 18 154/93 H 95 11/30/19 06:46 49 L 18 145/87 H 96 11/30/19 06:04 57 L 20 176/101 H 98
--- NOTE | 2019-11-30 18:20 | Discharge Summary ---
Date of Service November 30, 2019 Admission HPI Per Admitting Provider This is a 49-year-old male with past medical history significant for GERD, presents with chest pain. The patient works for [employer], he was in the truck in the passenger's seat, around 4:15 a.m. he started developing chest pain, retrosternal location 8/10 in severity, associated with some shortness of breath and dizziness. It lasted about 1 hour. He came to the ER, by the time that he came to the ER it subsided and now it is coming and going, but not as severe as before. Denies any nausea or sweating during the episode. Currently resting comfortably and hemodynamically stable. No cough, no fever, no chills. He has some mild headache, no blurred vision, no earache, no runny nose, no sore throat, no dysphagia. Appetite is okay. No abdominal pain. Normal bowel and bladder movements. No hematuria or burning micturition, no melena or hematochezia, no swelling in the legs, no rash. Admission Exam Per Admitting Provider GENERAL: The patient is obese, not in acute distress. VITAL SIGNS: Temperature 36.3, pulse 49, respiratory rate 18, blood pressure 145/87, oxygen 96% on room air. HEENT: No pallor, no icterus. Pupils equal, round, reactive to light. NECK: No JVD, no neck masses, no carotid bruits. CARDIOVASCULAR: S1, S2 heard, regular rate and rhythm, no murmur, no gallop. RESPIRATORY SYSTEM: Normal AP diameter. No accessory muscle use. No wheezing, no crackles. ABDOMEN: Soft, bowel sounds present, nontender. No distention. CENTRAL NERVOUS SYSTEM: Cranial nerves II-XII grossly intact. Nonfocal. EXTREMITIES: No edema, no erythema. Principal Diagnosis Chest pain, s/p cardiac cath, no significant CAD Discharge Exam GENERAL: middle aged obese male, in no acute distress HEENT: NC/AT, no pallor, no icterus. Pupils equal, round, reactive to light.EOMI NECK: No JVD, no neck masses, no carotid bruits. CARDIOVASCULAR: S1, S2 heard, regular rate and rhythm, no murmur, no gallop. RESPIRATORY SYSTEM: Normal AP diameter. No accessory muscle use. No wheezing, no rhonchi or crackles. ABDOMEN: Soft, bowel sounds present, nontender. No distention. CENTRAL NERVOUS SYSTEM: alert and orientedx3, speech fluent, no facial asymmetry, moves extremities spontaneously EXTREMITIES: No edema, no erythema. moves extremities spontaneously SKIN: warm, dry, well perfused Discharge Data Allergies Allergy/AdvReac Type Severity Reaction Status Date / Time No Known Allergies Allergy Verified 11/30/19 06:34 Consultations 11/30/19 06:40 ED Decision to Admit Stat 11/30/19 08:43 Consult Cardiology Routine Procedures Performed Operation Date: 11/30/19 12:00 Actual Procedures s Cardiac Cath Procedure - Orestes Zepeda MD s Cineradiography w/Routine Exam - Orestes Zepeda MD p Cath, Left with Cors and Vent - Orestes Zepeda MD Ordered Studies 11/30/19 11:54 CL Cath Imgs for PACS use only Routine Hospital Course (1) Left-sided chest pain: (2) HLD (hyperlipidemia): (3) Hypertension: This 49-year-old male who presents with chest pain, substernal/ left-sided Chest pain - rule out acute coronary syndrome - Risk factor of hypertension and age - patient had a stress test in 01/2018 which was unremarkable - Initial workup - negative except for bradycardia on the monitor -Troponin x2 negative, will do serial cardiac enzymes, echocardiogram -cardiology consulted, decided to proceed w/ cardiac cath today (11/30) - Echo - LV is normal in size, subtle hypokinesis of the apex with otherwise preserved LV function and wall motion - EF 55-60% - no significant valvular disease, no pericardial effusion, aortic root is normal in size - S/p cardiac cath - no significant coronary artery disease by cardiac cath - recommend adding losartan 25 mg to amlodipine for BP control, PCP follow up in 1-2 weeks, cardiology follow up PRN Hypertension - Continue amlodipine, will start losartan on discharge - monitor BP at home - follow up with PCP Hyperlipidemia. Continue statin. Gastroesophageal reflux disease. Continue Pepcid. Total Time Total Time Spent Total Time Spent (In Minutes): 40 Total Time Includes: Examination of the Patient, Discharge Planning, Medication Reconciliation and Communication With Other Providers Discharge Plan Discharge Items Patient Disposition: Home - Self-Care Reason For Visit: CHEST PAIN Discharge Diagnosis: Chest pain, s/p cardiac cath Activity: As commented below Activity Comment: Recommend rest and only light activity for next 3 days Non-emergency contact: Primary Care Provider and [employer]vee Superintendent Call non-emergency contact if: you have any medication questions and your symptoms worsen Follow-up/Referrals: Lexus Howell, [Primary Care Provider] - 12/02/19 11:00 am Diet: Heart Healthy Diet Comment: Please provide information for heart healthy/ Mediterreanean diet Addtl Attending Provider Instructions: Follow up with your primary care provider in 1 week. Start taking losartan in addition to your amlodipine for your blood pressure. Check your blood pressure at home and keep a log of these numbers. Make sure to bring the log to your primary care doctor appointment. As discussed with your industrial engineering manager, recommend rest and only light activity for next couple of days, you may return to work on December 04. Pending Studies at Discharge: No Stand-Alone Forms: My [facility] [employer], Work/School Release (Inpt), Smoking Cessation Medications and DC Order Prescriptions: New aspirin 81 mg Tablet,Delayed Release (Dr/Ec) 81 mg PO QAM 30 Days Qty: 30 RF: 0 losartan 25 mg tablet 25 mg PO DAILY Qty: 30 RF: 0 amlodipine [Norvasc] 5 mg Tablet 5 mg PO QAM 30 Days Qty: 30 RF: 0 Continued omeprazole 40 mg Capsule,Delayed Release(Dr/Ec) 40 mg PO QAM RF: 0 pravastatin 10 mg Tablet 10 mg PO HS RF: 0 omega [id number] oil [Fish Oil] 1,000 mg (120 mg-180 mg) Capsule 1 cap PO BID RF: 0 famotidine 20 mg tablet 20 mg PO BID RF: 0 Discontinued amlodipine 5 mg Tablet 5 mg PO QAM RF: 0 Discharge Orders: Discharge Order (Routine); Ordered 11/30/19 Ordered By: Jorge Martin Admission Data Admit Date/Time: 11/30/19 07:02 Attending Provider: Jorge Martin Admit Provider: Fady Castaneda Primary Care Provider: Lexus Howell Other Providers: Fady Castaneda ; Azar Beatty ; Charlie Bella ; Orestes Zepeda ; Fracisco Mike ; Tony Galarza ; Davon Edwards ; Jackie Louise ; Anna Quan ; Rod Marina
[2019-11-30] MEDS ORDERED: PRAVASTATIN SOD 10 MG TAB PO SCH (21:00)
== END 2019-11-30 18:42 | disposition home or self-care (01) ==
LOC: ED 04:59 → 2N 04:59 → 2S 07:03 → 2N 07:49

== ENCOUNTER 2025-05-31 08:58 | Observation (INO) ==
--- NOTE | 2025-05-31 09:17 | Emergency Department Note ---
Impression & Plan Precordial chest pain ED Provider Note NAME: FINA ZIMMERMAN AGE: 54 SEX: M : 1970 ARRIVES VIA: Ambulance INFORMANT: [Patient][EMS] ED PROVIDER(S): [Praneeth Abarca MD] CHIEF COMPLAINT: Chest pain HISTORY OF PRESENT ILLNESS: The patient is a 54-year-old male who states that 1.5 hours ago he was doing some light shoveling at work when he developed some central chest pain with some numbness down his left arm. He was short of breath. No sweating or nausea. The patient received 4 baby aspirin in route and 1 spray of nitroglycerin. The nitroglycerin spray did seem to relieve his discomfort but, the pain seems to be returning. Patient had a stress echo done just under 3 weeks ago, the patient states he did well. The patient was recently in the ED for some similar discomfort, cardiac enzyme testing and cardiac workup was unremarkable at that time. Patient has not had cough or cold. No trauma to the chest wall. He states he has no known diagnosis of coronary disease. PMHx/PSHx/Social Hx: See Below PHYSICAL EXAM: GENERAL: Patient is in no acute distress. HEENT: No acute trauma, normocephalic atraumatic, mucous membranes moist, no nasal congestion. NECK: No stridor, no adenopathy, no meningismus, trachea is midline. LUNGS: Clear to auscultation bilaterally, no wheeze, no rhonchi, breath sounds equal. HEART: Bradycardic, no murmurs, regular rhythm. Chest: Nontender chest wall. ABDOMEN: Soft, nontender, no peritonitis. EXTREMITIES: No cyanosis, full range of motion of all the joints without pain or difficulty. NEUROLOGIC: Oriented x 3, no acute motor or sensory deficits, no focal weakness. SKIN: No jaundice, no diaphoresis. DIFFERENTIAL DIAGNOSIS: Cardiac ischemia, musculoskeletal pain, reflux, aortic dissection, among others. EMERGENCY DEPARTMENT PROCEDURES: MEDICAL DECISION MAKING: There is no leukocytosis or concerning anemia. There is a normal platelet count. No coagulopathy. No renal failure or significant electrolyte abnormality. No concerning liver enzyme elevation. No evidence for pancreatitis. ECG shows a sinus bradycardia, no ST elevation. Cardiac enzyme testing x 2 is not consistent with acute cardiac injury. Chest x-ray does not show mediastinal widening, pneumonia or pneumothorax. Chest CT does not show any evidence for acute aortic dissection or PE. On exam, the patient was not in distress. I could not reproduce his chest pain with palpation. The patient had already received oral aspirin prior to arrival. He was given IV Zofran, IV morphine and nitroglycerin paste. His pain seems to have resolved. I did speak with [facility] cardiology. Patient will be hospitalized for further cardiac workup/care. At this point, the cause for his chest pain is not clear. He describes exertional discomfort today that was resolved with nitroglycerin. I did speak with case management, the on-call hospitalist was consulted. Prior/Outside records/notes reviewed: Today's EMS notes describing his presentation and transport at this hospital. ECG per my interpretation: Indication was chest pain. The ECG shows a sinus bradycardia with a rate of 54. LVH is present. There is diffuse nonspecific ST change. There is no obvious ST elevation, no PVCs. The QTc is 398. Compared to an ECG from 12 May 2025, I see no significant change. Continuous Cardiac Monitoring per my interpretation: An order was placed for continuous cardiac monitoring. The monitor shows a rate of 59 with sinus bradycardia. Imaging/x-ray results per my interpretation: Chest x-ray does not show mediastinal widening, pneumonia or pneumothorax. Chronic Medical/Social conditions affecting care: None Care/Management discussed with: [facility] cardiology. Case management and the on-call hospitalist. Level of care consideration(s): After review of the information above and other included data: --I believe the patient requires escalation of care to admission DISPOSITION: Admission Past Med/Surg History Problem List (Updated 05/31/25 @ 18:54 by Praneeth Abarca MD) Precordial chest pain (Acute) Dyslipidemia, goal LDL below 100 HTN, goal below 130/80 Encounter for laboratory testing for COVID-19 virus (Acute) Hypertension Left-sided chest pain (Acute) Medical History HLD (hyperlipidemia) HTN (hypertension) Surgical History Hx of cholecystectomy Social History Smoking Status: Never smoker Tobacco Type: Smokeless Tobacco (Dip or Chew) Second Hand Exposure: No; Do You Dip or Chew Tobacco: Yes; Hx Alcohol Use: No Hx Substance Use: No Preferred Language: Ukrainian Communication Ability: Effective Hogshead Dumper Required: No Beliefs That Will Affect Care: None Current Living Situation: Spouse Other Information That Helps Us Care for You: No Feels Safe at Home: Yes Safety Concerns: Feels Safe At This Time Assistive Devices: Glasses Allergies Allergies Allergy/AdvReac Type Severity Reaction Status Date / Time No Known Allergies Allergy Verified 05/12/25 09:09 Home Meds Home Medications Medication Instructions Recorded Confirmed pravastatin 10 mg tablet 10 mg PO HS 09/24/18 05/31/25 famotidine 20 mg tablet 20 mg PO BID 11/30/19 05/31/25 amlodipine 10 mg tablet 10 mg PO DAILY 08/05/20 05/31/25 aspirin 81 mg tablet,delayed 81 mg PO DAILY 02/24/23 05/31/25 release omega 1-hqk-wsh-fish oil 1,000 mg 1 cap PO BID 02/24/23 05/31/25 (120 mg-180 mg) capsule (Fish Oil) multivitamin 1 tab PO DAILY 05/12/25 05/31/25 omeprazole 40 mg capsule,delayed 40 mg PO DAILY 05/31/25 05/31/25 release Previous Rx's Medication Instructions Recorded losartan 25 mg tablet 25 mg PO DAILY #30 tabs 11/30/19 Results & Data (ED) Vital Signs Vital Signs - 24 hr 05/31/25 09:16 05/31/25 09:16 05/31/25 09:16 Temperature 36.9 C Temperature Source Oral Pulse Rate 96 H 59 L Pulse Rate [Apical] Pulse Rhythm Regular Respiratory Rate 19 19 Respiratory Effort / Characteristics Non-Labored Spontaneous Respiratory Depth Normal Blood Pressure 138/72 Blood Pressure [Left Arm] Blood Pressure Mean 94 Blood Pressure Mean [Left Arm] Blood Pressure Position [Left Arm] Pulse Oximetry 96 96 96 Oxygen Delivery Method Room Air Room Air Room Air Sepsis Recent Fever Within 48 Hours No Sepsis New/Unexplained Change in Mental Status N/A Sepsis Action Taken by Nursing No Action Required 05/31/25 09:16 05/31/25 09:43 05/31/25 10:00 Temperature 36.9 C Temperature Source Oral Pulse Rate 56 L Pulse Rate [Apical] 59 L 52 L Pulse Rhythm Respiratory Rate 19 19 Respiratory Effort / Characteristics Non-Labored Spontaneous Non-Labored Spontaneous Respiratory Depth Normal Normal Blood Pressure Blood Pressure [Left Arm] 138/72 116/74 Blood Pressure Mean Blood Pressure Mean [Left Arm] 94 88 Blood Pressure Position [Left Arm] Semi-fowlers Semi-fowlers Pulse Oximetry 96 93 Oxygen Delivery Method Room Air Room Air Sepsis Recent Fever Within 48 Hours Sepsis New/Unexplained Change in Mental Status Sepsis Action Taken by Nursing 05/31/25 11:00 Temperature Temperature Source Pulse Rate Pulse Rate [Apical] 50 L Pulse Rhythm Respiratory Rate 18 Respiratory Effort / Characteristics Non-Labored Spontaneous Respiratory Depth Normal Blood Pressure Blood Pressure [Left Arm] 137/73 Blood Pressure Mean Blood Pressure Mean [Left Arm] 94 Blood Pressure Position [Left Arm] Pulse Oximetry 96 Oxygen Delivery Method Room Air Sepsis Recent Fever Within 48 Hours Sepsis New/Unexplained Change in Mental Status Sepsis Action Taken by Long Term Medications Current Medication List: was personally reviewed by me Laboratory Data Attestation: I reviewed the patient's lab results. 05/31/25 09:26 05/31/25 09:26 Lab Results 05/31/25 05/31/25 Range/Units 09:26 11:11 WBC 10.00 (4.8-10.8) K/ul RBC 5.09 (4.70-6.10) M/uL Hgb 15.0 (14.0-18.0) g/dl Hct 42.4 (42.0-52.0) % MCV 83.3 (80.0-100.0) fL MCH 29.5 (25.0-34.0) pg MCHC 35.4 (32.0-36.0) g/dL RDW Std Deviation 40.1 (36.4-46.3) fL RDW Coeff of [place] 13.2 (11.5-14.5) % Plt Count 239 (130-400) K/uL MPV 9.6 (9.4-12.4) fL Immature Gran % (Auto) 0.3 % Neut % (Auto) 71.9 % Lymph % (Auto) 15.4 % [place] % (Auto) 8.8 % Eos % (Auto) 2.9 % Baso % (Auto) 0.7 % Neut # (Auto) 7.19 H (1.40-6.50) K/uL Lymph # (Auto) 1.54 (1.20-3.40) K/uL [place] # (Auto) 0.88 H (0.11-0.59) K/uL Eos # (Auto) 0.29 (0.00-0.50) K/uL Baso # (Auto) 0.07 (0.00-0.20) K/uL Immature Gran # (Auto) 0.03 (0.01-0.20) K/uL PT 10.2 (9.0-12.0) Seconds INR 0.9 (0.9-1.1) APTT 27 (21-31) Seconds PTT Ratio 1.0 Sodium 138 (136-145) mmol/L Potassium 3.7 (3.5-5.1) mmol/L Chloride 109 H (98-107) mmol/L Carbon Dioxide 23 (21-32) mmol/L Anion Gap 6 (3-11) BUN 10 (6-23) mg/dl Creatinine 0.73 (0.6-1.4) mg/dl Est Cr Clr Drug Dosing 137.2 ml/min eGFR 106.78 BUN/Creatinine Ratio 13.7 (10-20) Glucose 120 H (70-99(Fasting)) mg/dl Calcium 9.1 (8.6-10.3) mg/dl Magnesium 2.1 (1.7-2.4) mg/dl Total Bilirubin 0.6 (0.2-1.0) mg/dl AST 25 (13-39) U/L ALT 35 (7-52) U/L Alkaline Phosphatase 65 (34-104) U/L Troponin I High Sens 5.8 5.8 (0-20) pg/ml Total Protein 6.5 (6.0-8.3) gm/dl Albumin 3.9 (3.4-5.0) gm/dl Globulin 2.6 (2.5-4.0) gm/dl Albumin/Globulin Ratio 1.5 (0.9-2) Lipase 17 (11-82) U/L Administered Medications Pantoprazole Sodium (Pantoprazole 40 Mg Tab) 40 mg PO QAM [facility] Stop: 06/30/25 15:16 Last Admin: 05/31/25 16:21 Dose: 40 mg Documented By: KHLOE Discontinued Medications Ioversol (Optiray 320 125ml) 118 ml IV ONCE ONE Stop: 05/31/25 12:18 Last Admin: 05/31/25 12:19 Dose: 118 ml Documented By: RON Morphine Sulfate (Morphine Sulfate 2 Mg/Ml Carp) 2 mg IV NOW STA Stop: 05/31/25 09:13 Last Admin: 05/31/25 09:33 Dose: 2 mg Documented By: CASSIE Nitroglycerin (Nitroglycerin 2% Ointment 30gm Tube) 1 inch EXT NOW STA Stop: 05/31/25 09:13 Last Admin: 05/31/25 09:34 Dose: 1 inch Documented By: CASSIE Ondansetron HCl (Ondansetron Inj 2 Mg/Ml 2 Ml Vial) 4 mg IV NOW STA Stop: 05/31/25 09:13 Last Admin: 05/31/25 09:33 Dose: 4 mg Documented By: CASSIE Imaging Data Radiologist's Impression: Chest X-Ray 05/31/25 09:03 SINGLE VIEW CHEST CLINICAL HISTORY: Chest pain FINDINGS: An AP, portable, upright chest radiograph is compared to study dated 05/12/2025. Correlation is made with CT of the thoracic spine dated 11/15/2024. The heart is mildly enlarged. The pulmonary vasculature is noncongested. There is mild bibasilar atelectasis. The lungs and pleural spaces are otherwise clear. No pneumothorax is seen. The bony thorax is grossly intact. IMPRESSION: No acute cardiopulmonary abnormality is identified. ACT 112: Negative or not required by law. Electronically signed by: Praneeth Dave M.D. 05/31/2025 9:34 AM Chest CTA 05/31/25 10:59 CT ANGIOGRAM OF THE CHEST COMBO CLINICAL HISTORY: Chest pain COMPARISON STUDY: Chest x-ray dated 05/31/2025. CT of the thoracic spine dated 11/15/2024. Abdominal CT dated 02/24/2023. TECHNIQUE: Before and following the IV administration of 118 cc of Optiray 320, CT angiogram of the chest was performed from the thoracic inlet to the upper abdomen utilizing the dissection protocol. Images are reviewed in the axial, sagittal, and coronal planes. 3-D MIPS images are created and assessed. IV contrast was administered without complication. A dose lowering technique was utilized adhering to the principles of ALARA. CT DOSE: 1941.04 mGy.cm FINDINGS: Thyroid: Imaged portions of the thyroid gland are normal in size and attenuation. Thoracic aorta: No intramural hematoma is seen on the unenhanced series. The thoracic aorta is normal in caliber and demonstrates standard 3-vessel arch anatomy. No dissection is seen. The arch vessels are widely patent. Pulmonary vasculature: The pulmonary trunk is normal in caliber. There are no filling defects in the main, lobar, or segmental pulmonary arteries to indicate pulmonary embolus. Heart: The heart is normal in size and without pericardial effusion. Lungs and pleural spaces: There is mild dependent atelectasis. No airspace consolidation or pleural effusion is identified. A 2 mm left lower lobe nodule on image #166 is unchanged and of doubtful significance. The trachea and central airways are clear. Mediastinum: There is no mediastinal lymphadenopathy. Arianna: Clear. Axillae: There is no axillary lymphadenopathy. Upper abdomen: The gallbladder is surgically absent. The liver is steatotic. Skeletal structures: No lytic or blastic bony lesions are seen. Mild degenerative changes seen in the shoulders. IMPRESSION: 1. Unremarkable CT angiogram of the thoracic aorta. 2. There is no evidence of pulmonary embolus in the main, lobar, or segmental pulmonary arteries. 3. The lungs are clear. 4. Hepatic steatosis. 5. Additional findings as above. ACT 112: Negative or not required by law. Electronically signed by: Praneeth Dave M.D. 05/31/2025 12:52 PM Discharge Plan Visit Data Chief Complaint: Chest Pain Stated Complaint: CHEST PAIN ED Provider: Praneeth Abarca Discharge Problem: Precordial chest pain Patient Disposition: Admitted As Inpatient Condition: Fair Discharge Instructions Interventions: ED Discharge Assessment Last Done: 05/31/25 14:42
[2025-05-31] MEDS: ONDANSETRON INJ 2 MG/ML 2 ML VIAL IV STA (09:33)
[2025-05-31] MEDS: MoRPHine SULFATE 2 MG/ML CARP IV STA (09:33)
[2025-05-31] MEDS: NITROGLYCERIN 2% OINTMENT 30GM TUBE EXT STA (09:34)
--- NOTE | 2025-05-31 09:36 | XRay Report ---
SINGLE VIEW CHEST CLINICAL HISTORY: Chest pain FINDINGS: An AP, portable, upright chest radiograph is compared to study dated 05/12/2025. Correlation is made with CT of the thoracic spine dated 11/15/2024. The heart is mildly enlarged. The pulmonary va sculature is noncongested. There is mild bibasilar atelectasis. The lungs and pleural spaces are othe rwise clear. No pneumothorax is seen. The bony thorax is grossly intact. IMPRESSION: No acute cardiopulmonary abnormality is identified. ACT 112: Negative or not required by law. Electronically signed by: Praneeth Dave M.D. 05/31/2025 9:34 AM
[2025-05-31 09:54] LABS: Hematocrit (blood only) 42.4 % (42.0-52.0); Hemoglobin 15.0 g/dl (14.0-18.0); Immature Granulocytes # (auto) 0.03 K/uL (0.01-0.20); Immature Granulocytes % (auto) 0.3 %; Mean Corpuscular Hemoglobin 29.5 pg (25.0-34.0); Mean Corpuscular Volume 83.3 fL (80.0-100.0); Platelet Count 239 K/uL (130-400); RDW Standard Deviation 40.1 fL (36.4-46.3); Red Blood Count 5.09 M/uL (4.70-6.10); White Blood Count 10.00 K/ul (4.8-10.8)
[2025-05-31 10:12] LABS: Alanine Aminotransferase 35.0 U/L (7-52); Alkaline Phosphatase 65.0 U/L (34-104); Blood Urea Nitrogen 10.0 mg/dl (6-23); Calcium 9.1 mg/dl (8.6-10.3); Carbon Dioxide 23.0 mmol/L (21-32); Chloride 109.0 mmol/L (98-107); Creatinine Clr Calc Pharmacy 137.2 ml/min; Glucose 120.0 mg/dl (70-99(Fasting)); Potassium 3.7 mmol/L (3.5-5.1)
[2025-05-31 10:20] LABS: Albumin Globulin Ratio 1.5 (0.9-2); Anion Gap 6.0 (3-11); Bilirubin,Total 0.6 mg/dl (0.2-1.0); Globulin 2.6 gm/dl (2.5-4.0); Lipase 17.0 U/L (11-82); Magnesium 2.1 mg/dl (1.7-2.4); Sodium 138.0 mmol/L (136-145); Total Protein 6.5 gm/dl (6.0-8.3)
[2025-05-31 10:23] LABS: INR 0.9 (0.9-1.1); Partial Thromboplastin Time 27 Seconds (21-31); Prothrombin Time 10.2 Seconds (9.0-12.0)
--- NOTE | 2025-05-31 11:16 | History & Physical Report ---
Date of Service May 31, 2025 Assessment & Plan (1) Left-sided chest pain: (2) Hypertension: (3) HLD (hyperlipidemia): (4) Gastroesophageal reflux disease: Plan Left sided chest pain, Left arm tingling ,r/o ACS HTN HLD GERD - Admit to tele for observation for r/o - Trend cardiac biomarkers, initial set 5.8, second is again 5.8 at the 2 hr jennifer, will trend Q6H - EKG reviewed as above, no acute findings - Recent cardiac stress test completed on 05/12/25 did not show any acute abnormalities, previously had cardic cath in Nov 2019 which was negative. Reviewed in [facility]. Will await card recs to see if would like to pursue cardiac cath testing. - Cards consulted - discussed with Jennifer Edwards at bedside - appreciate recs - Will continue baby aspirin daily, pravastatin, losartan, amlodipine, and PPI with pantoprazole and famotidine with possible history of GERD causing worsening sx DVT ppx: teds, scds, ambulatory Lines: PIV x 1 FEN/GI: HH CODE: full code Dispo: From home, likely to remain in the hospital x 1-2 days I spent a total of 77 minutes with greater than 50% of that time face to face with the patient, personally reviewing all current laboratories, imaging studies, past medication reconciliation, outpatient chart review, and discussion with specialists to collaborate care for the patient excluding time spent in the performance of separately billed services or time spent by another provider/QHP. Please see attending documentation for corrections and/or additions. History of Present Illness Chief Complaint: Chest pain Primary Care Provider: Willis Zee MD This is a 54 yo M with PMHx of HTN, HLD, GERD, recently underwent cardiac stress testing on 05/12/2025 which showed an EF of 50 to 60%, no wall motion abnormality., Previous normal cardiac cath in 2019 showed low likelihood of cardiac origin. Patient presents to the hospital ER today with complaints of chest pain which has been intermittent today, started while at work with light shoveling of leaves, reports this as a left-central chest pain with radiation to the left arm with numbness/tingling. coworker of his called 911, EMS arrived and was given 1 nitro spray and full dose baby aspirin in the EMS en route to hospital. Patient reports this improved his pain from a 5/10 down to a 3/10. Pain recurred in the ER and has been given Nitropaste in the ER. Initial troponin is 5.8. Second set is pending. he denies any current chest pain, nonreproducible on exam. He reports having Mild shortness of breath when he experienced the chest pain. Typically does not have any difficulty breathing, no supplemental O2 at baseline, does not wear CPAP. He does not exercise on a routine basis. Social Hx: Patient admits to chewing a can of snuff every 2 to 3 days since approximately age 8. He denies any alcohol use. Denies any tobacco cigarette use, occasionally smokes a cigar. no illicit drug use. 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 Family Hx: He does have family history with a brother who around age 56 of heart disease/enlarged heart. He also has another older brother who has history of heart flutter. Surgical Hx: Cardiac cath Nov 2019, negative for cardiac atherosclerosis or acute findings. Cholecystectomy. Allergies Allergy/AdvReac Type Severity Reaction Status Date / Time No Known Allergies Allergy Verified 05/12/25 09:09 Home Medications Medication Instructions Recorded Confirmed Type pravastatin 10 mg tablet 10 mg PO HS 09/24/18 05/31/25 History famotidine 20 mg tablet 20 mg PO BID 11/30/19 05/31/25 History losartan 25 mg tablet 25 mg PO DAILY #30 tabs 11/30/19 05/31/25 Rx amlodipine 10 mg tablet 10 mg PO DAILY 08/05/20 05/31/25 History aspirin 81 mg tablet,delayed 81 mg PO DAILY 02/24/23 05/31/25 History release omega 9-jzb-gzv-fish oil 1,000 mg 1 cap PO BID 02/24/23 05/31/25 History (120 mg-180 mg) capsule (Fish Oil) multivitamin 1 tab PO DAILY 05/12/25 05/31/25 History omeprazole 40 mg capsule,delayed 40 mg PO DAILY 05/31/25 05/31/25 History release Past Med/Surg History Problem List Dyslipidemia, goal LDL below 100 HTN, goal below 130/80 Encounter for laboratory testing for COVID-19 virus (Acute) Hypertension Left-sided chest pain (Acute) Medical History HLD (hyperlipidemia) HTN (hypertension) Surgical History Hx of cholecystectomy Social History Smoking Status: Never smoker Tobacco Type: Smokeless Tobacco (Dip or Chew) Second Hand Exposure: No; Do You Dip or Chew Tobacco: Yes; Hx Alcohol Use: No Hx Substance Use: No Preferred Language: Liberian Communication Ability: Effective Bit Tapper Required: No Beliefs That Will Affect Care: None Current Living Situation: Spouse Other Information That Helps Us Care for You: No Feels Safe at Home: Yes Safety Concerns: Feels Safe At This Time Assistive Devices: Glasses Review of Systems Review of Systems: Constitutional: No fever, sweats or chills Eyes: No diplopia, no worsening or blurred vision ENT: normal hearing, no trouble swallowing Respiratory: No cough, sputum, dyspnea at rest, slight dyspnea on exertion Cardiovascular: As per HPI, no current chest pain. Abdomen: No pain, nausea, vomiting, diarrhea or constipation Musculoskeletal: No joint pain, calf pain, swelling Neurologic: No weakness, numbness/tingling, or balance problems Psychiatric: No anxiety or depression Skin: No rash or itch Physical Exam Physical Exam: General: awake, alert, no apparent distress, obese white male Head: Normocephalic, atraumatic ENT: PERRL, EOMI, no pharyngeal exudate, mucous membranes moist Chest: Clear to auscultation, on room air, no adventitious breath sounds Cardiac: chest pain is not reproducible on exam, Regular rate and rhythm, no murmur, no JVD, normal peripheral pulses, good capillary refill Abdominal: NABS x 4 quadrants, soft, nondistended, nontender to palpation, no rebound or guarding Extremities: Normal inspection, no peripheral edema or erythema, calfs nontender to palpation Psych: Normal mood and affect Neuro: AAO x 3, strength intact bilaterally and rated 5/5, no motor deficits, speech is clear, no peripheral sensory deficits Results & Data Results & Data Vital Signs (Past 12 Hours) Vital Signs Temp Pulse Pulse Resp BP BP Pulse Ox 08/27/25 10:00 52 L 19 116/74 93 05/31/25 09:43 56 L 05/31/25 09:16 36.9 C 59 L 19 138/72 96 05/31/25 09:16 96 05/31/25 09:16 59 L 19 96 05/31/25 09:16 36.9 C 96 H 19 138/72 96 O2 Del Method 05/31/25 10:00 Room Air 05/31/25 09:43 05/31/25 09:16 Room Air 05/31/25 09:16 Room Air 05/31/25 09:16 Room Air 05/31/25 09:16 Room Air Laboratory Results 05/31/25 09:26 WBC 10.00 RBC 5.09 Hgb 15.0 Hct 42.4 MCV 83.3 MCH 29.5 MCHC 35.4 RDW Std Deviation 40.1 RDW Coeff of [place] 13.2 Plt Count 239 MPV 9.6 Immature Gran % (Auto) 0.3 Neut % (Auto) 71.9 Lymph % (Auto) 15.4 [place] % (Auto) 8.8 Eos % (Auto) 2.9 Baso % (Auto) 0.7 Neut # (Auto) 7.19 H Lymph # (Auto) 1.54 [place] # (Auto) 0.88 H Eos # (Auto) 0.29 Baso # (Auto) 0.07 Immature Gran # (Auto) 0.03 PT 10.2 INR 0.9 APTT 27 PTT Ratio 1.0 Sodium 138 Potassium 3.7 Chloride 109 H Carbon Dioxide 23 Anion Gap 6 BUN 10 Creatinine 0.73 Est Cr Clr Drug Dosing 137.2 eGFR 106.78 BUN/Creatinine Ratio 13.7 Glucose 120 H Calcium 9.1 Magnesium 2.1 Total Bilirubin 0.6 AST 25 ALT 35 Alkaline Phosphatase 65 Troponin I High Sens 5.8 Total Protein 6.5 Albumin 3.9 Globulin 2.6 Albumin/Globulin Ratio 1.5 Lipase 17 Diagnostic Findings Chest X-Ray 05/31/25 09:03 SINGLE VIEW CHEST CLINICAL HISTORY: Chest pain FINDINGS: An AP, portable, upright chest radiograph is compared to study dated 05/12/2025. Correlation is made with CT of the thoracic spine dated 11/15/2024. The heart is mildly enlarged. The pulmonary vasculature is noncongested. There is mild bibasilar atelectasis. The lungs and pleural spaces are otherwise clear. No pneumothorax is seen. The bony thorax is grossly intact. IMPRESSION: No acute cardiopulmonary abnormality is identified. ACT 112: Negative or not required by law. Electronically signed by: Praneeth Dave M.D. 05/31/2025 9:34 AM ECG Additional Comments: Reviewed personally, no ST wave changes or signs of ischemia Code Status & VTE Plan Code Status Full code - discussed with pt at bedside Supervising Physician Co-Signing Physician Notes Patient seen and examined independently. Discussed with above provider. Patient presents with substernal chest pain; had recent stress echocardiogram which was within normal limits. High sensitive troponin was also within normal limits. Will get cardiology consultation, add Protonix for possible GERD. Continue monitor on telemetry I have reviewed the advanced practitioner's documentation, and I agree with, and take responsibility for the plan of care I spent a total of 30 minutes coordinating, documenting, and providing care for this patient excluding time spent in the performance of separately billed services. All of the aforementioned completed while collaborating with the assigned advanced practitioner for a full treatment plan (4) Gastroesophageal reflux disease Esophagitis presence: esophagitis presence not specified Qualified Code(s): K21.9 - Gastro-esophageal reflux disease without esophagitis
--- NOTE | 2025-05-31 11:35 | Cardiology Consultation ---
Date of Consultation May 31, 2025 Assessment & Plan (1) Chest pain: (2) HTN, goal below 130/80: (3) Dyslipidemia, goal LDL below 100: (4) Gastroesophageal reflux disease: Plan 54-year-old male patient admitted to [facility], presenting to the ER via EMS from work on May 31, 2025 with chest discomfort and left upper extremity numbness and tingling. Symptoms improved with administration of aspirin, nitroglycerin, and morphine. EKG without acute ST segment change. High-sensitivity troponin negative x 2 at 5.8 pg/mL then 5.8 pg/mL. Chest x-ray without acute process. Chest CTA to be performed. Telemetry monitoring benign. The same discomfort recently lead to ER evaluation with exercise stress testing negative for exercise-induced myocardial ischemia at 79% age predicted maximum heart rate on May 12, 2025. Chart review also reveals similar prior presentation dating back to 2018. Diagnostic cardiac catheterization performed on November 30, 2019 revealed angiographically normal coronary arteries. Options of management discussed. Recommendations: * Proceed with Chest CTA, serial cardiac enzymes, resting echocardiography, daily EKGs * Outpatient Cardiac CT with FFR if above workup negative. * Consider GI workup, addition of PPI, refer for upper endoscopy * Consider further evaluation for possible cervical radiculopathy. * NPO after midnight Supervising Physician Co-Signing Physician Notes Patient seen and examined. Past medical history, surgical history, social history and family history have been reviewed. The medical record and all the above studies have been reviewed. Case DW KATI including management. Chest Pain - Troponin negative so far GERD HTN HLD check serial CIE - if Troponins are negative then CCTA with possible FFR GI evaluation continue ASA, anti-HTN meds for target systolic BP between 100-140 mmHg History of Present Illness Reason for Consultation: Chest pain Requesting Physician: [facility] Hospitalist Service, Deandra Smith Attending Physician: [facility] Hospitalist Service History of Present Illness Judah Osborne is a 54-year-old male patient who presented to [facility] ER via EMS on May 31, 2025. 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 He describes describes shoveling leaves for about 5 minutes. After shoveling, when walking back to the truck he developed tightness in his left chest. One of his coworkers stated that he "looked like a ghost," shortly thereafter developing pain in the chest along with hleft arm numbness and tingling. He initially called his then Staff [employer] Officer who summoned EMS. En route patient received aspirin and nitroglycerin with prompt improvement though not complete resolution. Patient notes ongoing waxing and waning discomfort, thereafter receiving Nitropaste followed by morphine. he continues to have numbness and tingling in the tips of his fingers on the left hand. EKG's via EMS and at the ER were without acute ST segment change. High-sensitivity troponin negative x 2 (5.8 then 5.8 pg/mL). Chest imaging initially included chest x-ray that was without acute process. CTA of the chest to be performed next. Patient notes experiencing similar discomfort leading to ER evaluation on May 12, 2025. At that time he had just put his boots on for work when he developed the discomfort. Exercise stress testing was negative for exercise-induced myocardial ischemia and mild submaximal level. Chart review reveals very similar symptoms dating back to April 2018. Diagnostic cardiac catheterization performed on November 30, 2019 revealed angiographically normal coronary arteries. Problem list: Coronary angiography on November 30, 2019 revealed normal coronary arteries Hypertension Dyslipidemia Gastroesophageal reflux disease Gastritis Diaphragmatic hernia Chronic smokeless tobacco user Cholecystectomy Carpal tunnel surgery Family History: Mother in early 80s, from COVID/complications. Father is alive, 1 of 15, details unknown. Sister had a CVA. One brother passed with an enlarged heart at 56. One brother has "heart flutter." Social History: No cigarette use. Occasional cigar. Smokeless tobacco user, 1 can of snuff every other day since the age of 8. No significant alcohol, social only. No illegal/illicit drug use. Lives with in [place]. Daughter lives in [place], and is a nurse. Works for [employer]. Granddaughter was born on the day his mother . Allergies Allergy/AdvReac Type Severity Reaction Status Date / Time No Known Allergies Allergy Verified 05/12/25 09:09 Home Medications Medication Instructions Recorded Confirmed Type pravastatin 10 mg tablet 10 mg PO HS 09/24/18 05/31/25 History famotidine 20 mg tablet 20 mg PO BID 11/30/19 05/31/25 History losartan 25 mg tablet 25 mg PO DAILY #30 tabs 11/30/19 05/31/25 Rx amlodipine 10 mg tablet 10 mg PO DAILY 08/05/20 05/31/25 History aspirin 81 mg tablet,delayed 81 mg PO DAILY 02/24/23 05/31/25 History release omega 8-[id number]-[id number]-fish oil 1,000 mg 1 cap PO BID 02/24/23 05/31/25 History (120 mg-180 mg) capsule (Fish Oil) multivitamin 1 tab PO DAILY 05/12/25 05/31/25 History omeprazole 40 mg capsule,delayed 40 mg PO DAILY 05/31/25 05/31/25 History release Patient History Medical History HLD (hyperlipidemia) HTN (hypertension) Surgical History Hx of cholecystectomy Social History Smoking Status: Never smoker Tobacco Type: Smokeless Tobacco (Dip or Chew) Second Hand Exposure: No; Do You Dip or Chew Tobacco: Yes; Hx Alcohol Use: No Hx Substance Use: No Preferred Language: Divehi Communication Ability: Effective Rabbit Dresser Required: No Beliefs That Will Affect Care: None Current Living Situation: Spouse Other Information That Helps Us Care for You: No Feels Safe at Home: Yes Safety Concerns: Feels Safe At This Time Assistive Devices: Glasses Review of Systems Review of Systems: Complete Review of Systems: Constitutional: No recent colds or illness. Denies fevers or chills. No night sweats. Skin: No rash. No tick bites. HEENT: No amaurosis fugax. Pulmonary: No history of COPD. No history of PE. Cardiac: See above. GI/Abd: Dry heaves after tomato sauce and salt. Hiatal hernia. No melana or hematochezia. No kidney problems. No liver problems. No history of pancreatic issues. Vascular: No history of carotid artery disease, AAA, or lower extremity claudication/PAD. Hematologic: No coagulation disorder, anemia, or abnormal bleeding. Musculoskeletal: Negative. Neurologic: No history of TIA/CVA, or seizure disorder. Male : Nocturia x 2. Endocrine: No history of diabetes mellitus. No thyroid trouble. Complete Review of Systems is as stated above, negative, or noncontributory Physical Exam Physical Exam: General: A&Ox3. NAD. HENT: Normocephalic. Atraumatic. Eyes: PER. Conjunctiva pink, sclera clear. Neck: No carotid bruits. No JVD. No HJR. Heart: RRR. No murmur. No rub. No gallop. PMI is nondisplaced. Lungs: Clear to auscultation. Abdomen: +BS. Soft. Nontender. No masses or organomegaly. Extremities: No clubbing, cyanosis, or edema. Limited neurological examination is without focal deficits. Pulses: radial=2/4, posterior tibial=2/4. Results & Data Vital Signs (Past 12 Hours) Vital Signs Temp Pulse Pulse Resp BP BP Pulse Ox 05/31/25 10:00 52 L 19 116/74 93 05/31/25 09:43 56 L 05/31/25 09:16 36.9 C 59 L 19 138/72 96 05/31/25 09:16 96 05/31/25 09:16 59 L 19 96 05/31/25 09:16 36.9 C 96 H 19 138/72 96 O2 Del Method 05/31/25 10:00 Room Air 05/31/25 09:43 05/31/25 09:16 Room Air 05/31/25 09:16 Room Air 05/31/25 09:16 Room Air 05/31/25 09:16 Room Air Laboratory Results Cardiac Enzymes 05/31/25 Range/Units 09:26 AST 25 (13-39) U/L Troponin I High Sens 5.8 (0-20) pg/ml Coagulation 05/31/25 Range/Units 09:26 PT 10.2 (9.0-12.0) Seconds APTT 27 (21-31) Seconds CBC 05/31/25 Range/Units 09:26 WBC 10.00 (4.8-10.8) K/ul RBC 5.09 (4.70-6.10) M/uL Hgb 15.0 (14.0-18.0) g/dl Hct 42.4 (42.0-52.0) % Plt Count 239 (130-400) K/uL Neut # (Auto) 7.19 H (1.40-6.50) K/uL Lymph # (Auto) 1.54 (1.20-3.40) K/uL George # (Auto) 0.88 H (0.11-0.59) K/uL Eos # (Auto) 0.29 (0.00-0.50) K/uL Baso # (Auto) 0.07 (0.00-0.20) K/uL Comprehensive Metabolic Panel 05/31/25 Range/Units 09:26 Sodium 138 (136-145) mmol/L Potassium 3.7 (3.5-5.1) mmol/L Chloride 109 H (98-107) mmol/L Carbon Dioxide 23 (21-32) mmol/L BUN 10 (6-23) mg/dl Creatinine 0.73 (0.6-1.4) mg/dl Glucose 120 H (70-99(Fasting)) mg/dl Calcium 9.1 (8.6-10.3) mg/dl AST 25 (13-39) U/L ALT 35 (7-52) U/L Alkaline Phosphatase 65 (34-104) U/L Total Protein 6.5 (6.0-8.3) gm/dl Albumin 3.9 (3.4-5.0) gm/dl Intake and Output 05/30/25 05/31/25 05/31/25 22:59 06:59 14:59 Other: Weight 108.6 kg Weight Measurement Method Built in [facility] Patient Weight 06/01/25 06:59 Weight 108.6 kg Diagnostic Findings November 30, 2019 Coronary Angiography ([facility], Dr. Zepeda): Coronary Anatomy Dominant: Right Left Main (% Stenosis): Normal (Very short with near separate origins left anterior setting left main) LAD (% Stenosis): Normal D1 (% Stenosis): Normal Circumflex (% Stenosis): Normal OM1 (% Stenosis): Normal OM2 (% Stenosis): Normal L PL1 (% Stenosis): Normal L PL2 (% Stenosis): Normal RCA (% Stenosis): Normal May 12, 2025 EKG: Sinus bradycardia 53 bpm. Minimal voltage criteria for LVH. Nonspecific T wave abnormality. May 12, 2025 KATELYN Interpretation Summary: The stress echocardiogram is negative for ischemia. The patient reached a moderately high workload, 7 METS. The stress portion was terminated due to fatigue. The resting heart rate of 52 bpm elvira to a maximal heart rate of 131 bpm. This value represents 79% age- predicted maximum heart rate. Heart rate response to exercise was mildly attenuated but felt to be adequate for diagnostic study. The blood pressure response to exercise was normal. The resting left ventricular ejection fraction was normal at 55 to 60%. No significant valvular disease observed on the resting study. ER Telemetry: Sinus/sinus bradycardia. No significant pauses. No atrial or ventricular arrhythmias. EMS EKG technically limited, without acute change ER EKG: Sinus bradycardia at 54 bpm with H criteria and nonspecific T wave abnormality anterolaterally. PG Care Time/CCT Total # of Minutes Spent Total Time Spent with Patient: Total time spent is greater than 50% in coordination of care (as documented) at patient's floor/unit and/or counseling patient.I spent a total of 75 minutes on the date of service in preparation, delivery, and documentation of the care provided to this patient excluding any time spent in the performance of separately billed services. This visit was a split-shared visit with the substantive portion of the medical decision making performed by the supervising music arranger/billing provider, Dr. Shultz Coding Level of Care Code 68354 IN/OBS CONSULT LVL 5,80M Diagnoses Chest pain R07.9 HTN, goal below 130/80 I10 Dyslipidemia, goal LDL below 100 E78.5 Gastroesophageal reflux disease K21.9 Esophagitis presence: esophagitis presence not specified (4) Gastroesophageal reflux disease Esophagitis presence: esophagitis presence not specified Qualified Code(s): K21.9 - Gastro-esophageal reflux disease without esophagitis
[2025-05-31] MEDS: OPTIRAY 320 125ml IV ONE (12:19)
--- NOTE | 2025-05-31 12:53 | CT Scan Report ---
CT ANGIOGRAM OF THE CHEST COMBO CLINICAL HISTORY: Chest pain COMPARISON STUDY: Chest x-ray dated 05/31/2025. CT of the thoracic spine dated 11/15/2024. Abdominal C T dated 02/24/2023. TECHNIQUE: Before and following the IV administration of 118 cc of Optiray 320, CT angiogram of the c hest was performed from the thoracic inlet to the upper abdomen utilizing the dissection protocol. Im ages are reviewed in the axial, sagittal, and coronal planes. 3-D MIPS images are created and assesse d. IV contrast was administered without complication. A dose lowering technique was utilized adherin g to the principles of ALARA. CT DOSE: 1941.04 mGy.cm FINDINGS: Thyroid: Imaged portions of the thyroid gland are normal in size and attenuation. Thoracic aorta: No intramural hematoma is seen on the unenhanced series. The thoracic aorta is normal in caliber and demonstrates standard 3-vessel arch anatomy. No dissection is seen. The arch vessels are widely patent. Pulmonary vasculature: The pulmonary trunk is normal in caliber. There are no filling defects in the main, lobar, or segmental pulmonary arteries to indicate pulmonary embolus. Heart: The heart is normal in size and without pericardial effusion. Lungs and pleural spaces: There is mild dependent atelectasis. No airspace consolidation or pleural e ffusion is identified. A 2 mm left lower lobe nodule on image #166 is unchanged and of doubtful signi ficance. The trachea and central airways are clear. Mediastinum: There is no mediastinal lymphadenopathy. Arianna: Clear. Axillae: There is no axillary lymphadenopathy. Upper abdomen: The gallbladder is surgically absent. The liver is steatotic. Skeletal structures: No lytic or blastic bony lesions are seen. Mild degenerative changes seen in the shoulders. IMPRESSION: 1. Unremarkable CT angiogram of the thoracic aorta. 2. There is no evidence of pulmonary embolus in the main, lobar, or segmental pulmonary arteries. 3. The lungs are clear. 4. Hepatic steatosis. 5. Additional findings as above. ACT 112: Negative or not required by law. Electronically signed by: Praneeth Dave M.D. 05/31/2025 12:52 PM
[2025-05-31] MEDS ORDERED: ONDANSETRON INJ 2 MG/ML 2 ML VIAL IV PRN (15:17)
[2025-05-31] MEDS ORDERED: ACETAMINOPHEN 325 MG TAB PO PRN (15:17)
[2025-05-31] MEDS: PRAVASTATIN SOD 10 MG TAB PO SCH (20:11)
[2025-05-31] MEDS: OMEGA-3 (PURIFIED FISH OIL) 1 GM CAP PO SCH (20:11)
[2025-05-31] MEDS: FAMOTIDINE 20 MG TAB PO SCH (20:11)
[2025-06-01 06:41] LABS: Hematocrit (blood only) 41.1 % (42.0-52.0); Hemoglobin 14.6 g/dl (14.0-18.0); Immature Granulocytes # (auto) 0.03 K/uL (0.01-0.20); Immature Granulocytes % (auto) 0.3 %; Mean Corpuscular Hemoglobin 30.0 pg (25.0-34.0); Mean Corpuscular Volume 84.6 fL (80.0-100.0); Platelet Count 192 K/uL (130-400); RDW Standard Deviation 40.6 fL (36.4-46.3); Red Blood Count 4.86 M/uL (4.70-6.10); White Blood Count 8.94 K/ul (4.8-10.8)
[2025-06-01 07:11] LABS: Anion Gap 5.0 (3-11); Blood Urea Nitrogen 12.0 mg/dl (6-23); Calcium 8.8 mg/dl (8.6-10.3); Carbon Dioxide 27.0 mmol/L (21-32); Chloride 106.0 mmol/L (98-107); Cholesterol 123.0 mg/dl (0-200); Creatinine Clr Calc Pharmacy 100.8 ml/min; Glucose 124.0 mg/dl (70-99(Fasting)); HDL Cholesterol 29.0 mg/dl; Potassium 3.8 mmol/L (3.5-5.1); Sodium 138.0 mmol/L (136-145); Triglycerides 181.0 mg/dl (0-150)
[2025-06-01 07:21] LABS: Hemoglobin A1C 5.5 % (4.5-5.6)
[2025-06-01] MEDS: MULTIVITAMIN TAB PO SCH (09:02)
[2025-06-01] MEDS: LOSARTAN POTASSIUM 25 MG TAB PO SCH (09:02)
[2025-06-01] MEDS: ASPIRIN 81 MG ECTAB PO SCH (09:02)
--- NOTE | 2025-06-01 10:43 | Cardiology Progress Note ---
Date of Service June 01, 2025 Assessment & Plan (1) Chest pain: (2) HTN, goal below 130/80: (3) Dyslipidemia, goal LDL below 100: (4) Gastroesophageal reflux disease: Plan 54-year-old male patient admitted to [facility], presenting to the ER via EMS from work on May 31, 2025 with chest discomfort and left upper extremity numbness and tingling. Symptoms improved with administration of aspirin, nitroglycerin, and morphine. EKG without acute ST segment change. High-sensitivity troponin negative x 2 at 5.8 pg/mL then 5.8 pg/mL. Chest x-ray without acute process. Chest CTA to be performed. Telemetry monitoring benign. The same discomfort recently lead to ER evaluation with exercise stress testing negative for exercise-induced myocardial ischemia at 79% age predicted maximum heart rate on May 12, 2025. Chart review also reveals similar prior p resentation dating back to 2018. Diagnostic cardiac catheterization performed on November 30, 2019 revealed angiographically normal coronary arteries. Options of management discussed. Chest Pain - ID R/O GERD HTN HLD CCTA with possible FFR as outpatient GI evaluation - defer to Hospitalist continue ASA, anti-HTN meds for target systolic BP between 100-140 mmHg stable from cardiac standpoint for discharge f/u in cardiology clinic as outpatient Admission and Anticipated Discharge Date Admission Date: May 31, 2025 Subjective Patient on exam is lying in bed in NAD; no c/o cp, sob, palpitations, dizziness, LOC Review of Systems Review of Systems: Complete Review of Systems: Constitutional: No recent colds or illness. Denies fevers or chills. No night sweats. Skin: No rash. No tick bites. HEENT: No amaurosis fugax. Pulmonary: No history of COPD. No history of PE. Cardiac: See above. GI/Abd: Dry heaves after tomato sauce and salt. Hiatal hernia. No melana or hematochezia. No kidney problems. No liver problems. No history of pancreatic issues. Vascular: No history of carotid artery disease, AAA, or lower extremity claudication/PAD. Hematologic: No coagulation disorder, anemia, or abnormal bleeding. Musculoskeletal: Negative. Neurologic: No history of TIA/CVA, or seizure disorder. Male : Nocturia x 2. Endocrine: No history of diabetes mellitus. No thyroid trouble. Complete Review of Systems is as stated above, negative, or noncontributory Physical Exam Physical Exam: General: A&Ox3. NAD. HENT: Normocephalic. Atraumatic. Eyes: PER. Conjunctiva pink, sclera clear. Neck: No carotid bruits. No JVD. No HJR. Heart: RRR. No murmur. No rub. No gallop. PMI is nondisplaced. Lungs: Clear to auscultation. Abdomen: +BS. Soft. Nontender. No masses or organomegaly. Extremities: No clubbing, cyanosis, or edema. Limited neurological examination is without focal deficits. Results & Data Vital Signs (Past 12 Hours) Vital Signs Temp Pulse Pulse Resp BP Pulse Ox O2 Del Method 06/01/25 08:23 48 L 06/01/25 07:26 36.7 C 52 L 19 109/69 94 Room Air 06/01/25 03:24 36.4 C L 53 L 18 100/60 96 Room Air 05/31/25 22:59 36.5 C 52 L 18 118/67 97 Room Air Laboratory Results Cardiac Enzymes 05/31/25 05/31/25 05/31/25 Range/Units 11:11 17:36 23:06 Troponin I High Sens 5.8 7.4 8.3 (0-20) pg/ml Lipids 06/01/25 Range/Units 06:11 Triglycerides 181 H (0-150) mg/dl Cholesterol 123 (0-200) mg/dl HDL Cholesterol 29 mg/dl Cholesterol/HDL Ratio 4.2 (0-5) CBC 06/01/25 Range/Units 06:11 WBC 8.94 (4.8-10.8) K/ul RBC 4.86 (4.70-6.10) M/uL Hgb 14.6 (14.0-18.0) g/dl Hct 41.1 L (42.0-52.0) % Plt Count 192 (130-400) K/uL Neut # (Auto) 5.69 (1.40-6.50) K/uL Lymph # (Auto) 1.82 (1.20-3.40) K/uL Wilkinson # (Auto) 0.79 H (0.11-0.59) K/uL Eos # (Auto) 0.54 H (0.00-0.50) K/uL Baso # (Auto) 0.07 (0.00-0.20) K/uL Comprehensive Metabolic Panel 06/01/25 Range/Units 06:11 Sodium 138 (136-145) mmol/L Potassium 3.8 (3.5-5.1) mmol/L Chloride 106 (98-107) mmol/L Carbon Dioxide 27 (21-32) mmol/L BUN 12 (6-23) mg/dl Creatinine 0.98 (0.6-1.4) mg/dl Glucose 124 H (70-99(Fasting)) mg/dl Calcium 8.8 (8.6-10.3) mg/dl Intake and Output 05/31/25 06/01/25 06/01/25 22:59 06:59 14:59 Other: Other Intake Source NPO # Unmeasured Voids 1 Weight 105.6 kg Weight Measurement Method Built in [facility] Diagnostic Findings 05/31/25 ECHOCARDIOGRAM Interpretation Summary The study was technically difficult due to patient characteristics/poor acoustic windows, but adequate for the evaluation of the referral indication. The ultrasound enhancement agent Definity was administered to improve delineation of the endocardial border. There is borderline concentric left ventricular hypertrophy. No regional wall motion abnormalities noted. Left Ventricular Ejection Fraction = 60-65%. The right ventricle is normal in size and function. Grade I diastolic dysfunction, (abnormal relaxation pattern). There is no significant valvular disease Medications Administered Home Medications Medication Instructions Recorded Confirmed Last Taken pravastatin 10 mg tablet 10 mg PO HS 09/24/18 05/31/25 02/19/25 famotidine 20 mg tablet 20 mg PO BID 11/30/19 05/31/25 02/20/25 losartan 25 mg tablet 25 mg PO DAILY #30 tabs 11/30/19 05/31/25 02/20/25 amlodipine 10 mg tablet 10 mg PO DAILY 08/05/20 05/31/25 02/20/25 aspirin 81 mg tablet,delayed 81 mg PO DAILY 02/24/23 05/31/25 02/20/25 release omega 2-oma-vbt-fish oil 1,000 mg 1 cap PO BID 02/24/23 05/31/25 02/20/25 (120 mg-180 mg) capsule (Fish Oil) multivitamin 1 tab PO DAILY 05/12/25 05/31/25 Unknown omeprazole 40 mg capsule,delayed 40 mg PO DAILY 05/31/25 05/31/25 Unknown release Active Medications Generic Name Dose Route Start Last Admin Trade Name Lauri PRN Reason Stop Dose Admin Amlodipine Besylate 10 mg 06/01/25 09:00 06/01/25 10:19 Amlodipine Besylate 5 Mg Tab PO 07/01/25 08:59 10 mg DAILY VICKI Administration Aspirin 81 mg 06/01/25 09:00 06/01/25 09:02 Aspirin 81 Mg Ectab PO 07/01/25 08:59 81 mg DAILY VICKI Administration Famotidine 20 mg 05/31/25 21:00 06/01/25 09:25 Famotidine 20 Mg Tab PO 06/30/25 20:59 20 mg BID VICKI Administration Fish Oil 1 cap 05/31/25 21:00 06/01/25 09:02 [place]-3 (Purified Fish Oil) 1 Gm Cap PO 06/30/25 20:59 1 cap BID VICKI Administration Losartan Potassium 25 mg 06/01/25 09:00 06/01/25 09:02 Losartan Potassium 25 Mg Tab PO 07/01/25 08:59 25 mg DAILY VICKI Administration Multivitamins 1 tab 06/01/25 09:00 06/01/25 09:02 Multivitamin Tab PO 07/01/25 08:59 1 tab QAM VICKI Administration Pantoprazole Sodium 40 mg 05/31/25 15:17 06/01/25 09:03 Pantoprazole 40 Mg Tab PO 06/30/25 15:16 40 mg QAM VICKI Administration Pravastatin Sodium 10 mg 05/31/25 21:00 05/31/25 20:11 Pravastatin Sod 10 Mg Tab PO 06/30/25 20:59 10 mg HS VICKI Administration PG Care Time/CCT Total # of Minutes Spent Total Time Spent with Patient: Total time spent is greater than 50% in coordination of care (as documented) at patient's floor/unit and/or counseling patient: Coding Level of Care Code 45235 SUB INP/OBS CARE 3/50MIN Diagnoses Chest pain R07.9 HTN, goal below 130/80 I10 Dyslipidemia, goal LDL below 100 E78.5 Gastroesophageal reflux disease K21.9 Esophagitis presence: esophagitis presence not specified (4) Gastroesophageal reflux disease Esophagitis presence: esophagitis presence not specified Qualified Code(s): K21.9 - Gastro-esophageal reflux disease without esophagitis
[2025-06-01 11:00] VITALS: BP 128/80; PULSE 49; RESP 17; TEMP 97.9; O2SAT 97
--- NOTE | 2025-06-01 17:32 | Electrocardiogram Report ---
Test Reason : Blood Pressure : */* mmHG Vent. Rate : 54 BPM Atrial Rate : 54 BPM P-R Int : 122 ms QRS Dur : 84 ms QT Int : 420 ms P-R-T Axes : 15 -12 55 degrees QTcB Int : 398 ms Sinus bradycardia Minimal voltage criteria for LVH, may be normal variant ( R in aVL ) Nonspecific T wave abnormality Abnormal ECG When compared with ECG of 12-May-2025 07:56, No significant change was found Confirmed by Phani Montes ([id number]) on 06/01/2025 5:32:16 PM Referred By: REFERRED SELF Confirmed By: Phani Montes
--- NOTE | 2025-06-01 21:20 | Discharge Summary ---
Discharge Summary Date of Service June 01, 2025 Principal Dx & Hospital Course #1 = Principal Diagnosis (1) Left-sided chest pain: (2) Hypertension: (3) HLD (hyperlipidemia): (4) Gastroesophageal reflux disease: Plan Left sided chest pain, Left arm tingling ,r/o ACS HTN HLD GERD - Admit to [facility] for observation for r/o - Trend cardiac biomarkers, initial set 5.8, second is again 5.8 at the 2 hr mar k, will trend Q6H - EKG reviewed as above, no acute findings - Recent cardiac stress test completed on 05/12/25 did not show any acute abnormalities, previously had cardic cath in Nov 2019 which was negative. Reviewed in [facility]. Will await card recs to see if would like to pursue cardiac cath testing. - Cards consulted - discussed with Davon Edwards at bedside - appreciate recs - Will continue baby aspirin daily, pravastatin, losartan, amlodipine, and PPI with pantoprazole and famotidine with possible history of GERD causing worsening sx Notes For Next Care Provider This is a 54 yo M with PMHx of HTN, HLD, GERD, recently underwent cardiac stress testing on 05/12/2025 which showed an EF of 50 to 60%, no wall motion abnormality., Previous normal cardiac cath in 2019 showed low likelihood of cardiac origin. Patient presents to the hospital ER today with complaints of chest pain which has been intermittent today, started while at work with light shoveling of leaves, reports this as a left-central chest pain with radiation to the left arm with numbness/tingling. Admitted for chest pain rule out. On medicine, cardiology consulted, echo reviewed, along with troponins and ECG reassuring for noncardiac related chest pain. CT chest unremarkable for acute pathology. On 06/01/2025 patient medically stable for discharge home from cardiac and medicine perspective. To do: [ ] f/u with cardiology Incidentals: hepatic steatosis Medication Changes From Visit -increased protonix dosing Admission HPI Per Admitting Provider This is a 54 yo M with PMHx of HTN, HLD, GERD, recently underwent cardiac stress testing on 05/12/2025 which showed an EF of 50 to 60%, no wall motion abnormality., Previous normal cardiac cath in 2019 showed low likelihood of cardiac origin. Patient presents to the hospital ER today with complaints of chest pain which has been intermittent today, started while at work with light shoveling of leaves, reports this as a left-central chest pain with radiation to the left arm with numbness/tingling. coworker of his called 911, EMS arrived and was given 1 nitro spray and full dose baby aspirin in the EMS en route to hospital. Patient reports this improved his pain from a 5/10 down to a 3/10. Pain recurred in the ER and has been given Nitropaste in the ER. Initial troponin is 5.8. Second set is pending. he denies any current chest pain, nonreproducible on exam. He reports having Mild shortness of breath when he experienced the chest pain. Typically does not have any difficulty breathing, no supplemental O2 at baseline, does not wear CPAP. He does not exercise on a routine basis. Social Hx: Patient admits to chewing a can of snuff every 2 to 3 days since approximately age 8. He denies any alcohol use. Denies any tobacco cigarette use, occasionally smokes a cigar. no illicit drug use. 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 Family Hx: He does have family history with a brother who around age 56 of heart disease/enlarged heart. He also has another older brother who has history of heart flutter. Surgical Hx: Cardiac cath Nov 2019, negative for cardiac atherosclerosis or acute findings. Cholecystectomy. Discharge Exam Gen: A&O 3 NAD HEENT: NCAT, EOMI, not icteric. External ears normal. No rhinorrhea. Moist mucous membranes. Neck: Supple, full range of motion, no observable masses, No meningeal sign. Lungs: No Respiratory distress. CV: RRR, no edema. Abdomen: Soft, nondistended, No rebound tenderness. MSK: No joint swelling, no redness. Skin: No rashes, petechiae, lesions. Normal color per patient. Neuro: Normal Gait, Grossly intact. Psych: Appropriate for situation. Updated Medication List Medication Instructions Recorded Confirmed Type pravastatin 10 mg tablet 10 mg PO HS 09/24/18 05/31/25 History famotidine 20 mg tablet 20 mg PO BID 11/30/19 05/31/25 History losartan 25 mg tablet 25 mg PO DAILY #30 tabs 11/30/19 05/31/25 Rx amlodipine 10 mg tablet 10 mg PO DAILY 08/05/20 05/31/25 History aspirin 81 mg tablet,delayed 81 mg PO DAILY 02/24/23 05/31/25 History release omega 0-ada-bym-fish oil 1,000 mg 1 cap PO BID 02/24/23 05/31/25 History (120 mg-180 mg) capsule (Fish Oil) multivitamin 1 tab PO DAILY 05/12/25 05/31/25 History pantoprazole 40 mg tablet,delayed 40 mg PO BID 30 days #60 tabs 06/01/25 Rx release Hospital Stay Data Consultations 05/31/25 11:22 ED Decision to Admit Stat 05/31/25 15:17 Consult Cardiology Routine Diagnostic Imagining Performed 05/31/25 10:59 CT angio chest dissec wo/w con Stat Pending Results Patient Have Any Pending Studies at Discharge: No Discharge Instructions Given to Patient (Per Discharging Provider) Diagnosis: chest pain of unknown etiology Follow Up: PCP, cardiology, GI Incidentals: hepatic steatosis 1. Please follow up with PCP, cardiology and GI. 2. Please take medications as prescribed. 3. Stay hydrated! Total Time Total Time Spent Total Time Spent (In Minutes): I spent a total of 35 minutes in direct patient care, including [id number] time with the patient and/or family, reviewing medical records, ordering and reviewing diagnostic tests, and coordinating care with other healthcare providers. This time includes: history taking, physical examination, medical decision making, counseling, ECG interpretation, imaging interpretation, lab interpretation, orders, and education, excluding time spent in the performance of separately billed services.
== END 2025-06-01 13:32 | disposition home or self-care (01) ==
LOC: ED 08:58 → 2S 08:58 → SUATTDRO 11:28 → 2S 14:42